=== PATIENT | female | born 1985 | race Caucasian/White ===

== ENCOUNTER → 2018-04-01 | Outpatient (CLI) | payer OTHER, MEDICAID | LOC: M OUTALCOH 12:07 | DX: Z03.89 Encounter for observation for other suspected diseases and conditions ruled out (principal) ==

== ENCOUNTER 2018-08-28 14:02 | Inpatient (IN) | payer OTHER ==
[~2018-08-28] VITALS: Ht 162.6 cm; Wt 72.7 kg
[2018-08-28] MEDS: HEPARIN SOD (PORCINE) 5000 UNITS/ML VIAL SC SCH ×2 (09:00→21:00)
[2018-08-28] MEDS ORDERED: ADVI100T PO (14:08)
[2018-08-28] MEDS ORDERED: ONDA4TAB6 PO (14:08)
[2018-08-28] MEDS ORDERED: ADDE20TA PO (14:08)
[2018-08-28] MEDS ORDERED: ONDANSETRON 4MG/2ML VIAL (J2405) IV ONE (14:30)
[2018-08-28] MEDS ORDERED: MORPHINE 2 MG/ML 1ML SYRINGE (J2270) IV ONE ×2 (14:30→15:45)
[2018-08-28] MEDS ORDERED: NS 1,000 ML IV ONE (14:30)
[2018-08-28 14:56] LABS: BASO # 0.1 10^3/uL (0.0-0.2); BASO % 0.5 % (0.0-1.0); EOS # 0.1 10^3/uL (0.0-0.50); EOS % 1.4 % (0.0-3.0); HEMATOCRIT 39.1 % (36.0-47.0); HEMOGLOBIN 13.3 g/dl (12.0-15.5); LYMPH # 2.7 10^3/uL (1.5-4.5); LYMPH % 27.5 % (24.0-44.0); MEAN CORPUSCULAR HEMOGLOBIN 29.6 pg (27.0-33.0); MEAN CORPUSCULAR VOLUME 87.1 fl (80.0-96.0); MONO # 0.8 10^3/uL (0.0-0.8); MONO % 8.7 % (0.0-5.0); NEUTROPHILS % 61.7 % (36.0-66.0); PLATELET COUNT, AUTOMATED 355 10^3/uL (150-450); RED BLOOD COUNT 4.49 10^6/uL (4.00-5.40); WHITE BLOOD COUNT 9.7 10^3/uL (4.0-10.0)
[2018-08-28] MEDS: GASTROGRAFIN SOLUTION 30ML PO SCH ×2 (15:30→16:02)
[2018-08-28 15:31] LABS: ALBUMIN 4.2 GM/DL (3.2-5.2); ALT/SGPT 23 U/L (12-78); BILIRUBIN,DIRECT 0.1 MG/DL (0.0-0.2); BILIRUBIN,TOTAL 0.5 MG/DL (0.2-1.0); BLOOD UREA NITROGEN 11 MG/DL (7-18); CARBON DIOXIDE LEVEL 26 MEQ/L (21-32); CHLORIDE LEVEL 107 MEQ/L (98-107); CREATININE FOR GFR 0.99 MG/DL (0.55-1.30); GLOMERULAR FILTRATION RATE > 60.0 (>60); GLUCOSE, FASTING 100 MG/DL (70-100); HCG, SERUM QUALITATIVE NEGATIVE (NEGATIVE); LIPASE 58 U/L (73-393); POTASSIUM SERUM 3.6 MEQ/L (3.5-5.1); SODIUM LEVEL 140 MEQ/L (136-145); TOTAL PROTEIN 7.8 GM/DL (6.4-8.2)
[2018-08-28] MEDS ORDERED: ISOVUE-370 76% 100ML VIAL (Q9967) As Ordered ONE (16:51)
[2018-08-28] MEDS ORDERED: PROMETHAZINE INJ 25 MG/ML VIAL (J2550) IV ONE (17:15)
[2018-08-28] MEDS ORDERED: HALOPERIDOL 5 MG/ML VIAL (J1630) IV ONE (18:00)
--- NOTE | 2018-08-28 18:07 | REPVR ---
EXAM: CT Abdomen and Pelvis With Contrast EXAM DATE/TIME: 08/28/2018 4:56 PM CLINICAL HISTORY: 33 years old, female; Abdominal pain; Generalized; Additional info: Low abdominal pain/bloody stools, eval for uc, divertic TECHNIQUE: Imaging protocol: Axial computed tomography images of the abdomen and pelvis with intravenous contrast. Coronal and sagittal reformatted images were created and reviewed. Radiation optimization: All CT scans at this facility use at least one of these dose optimization techniques: automated exposure control; mA and/or kV adjustment per patient size (includes targeted exams where dose is matched to clinical indication); or iterative reconstruction. Contrast material: ISOVUE 370; Contrast volume: 100 ml; Contrast route: IV CONTRAST; COMPARISON: CT ABD PELVIS W/O CONTRAST 04/03/2013 6:11 AM FINDINGS: ABDOMEN: Liver: No hepatic mass. There is hypodensity identified within the medial segment of the left lobe of the liver adjacent to the falciform ligament. This is a common location for fatty infiltration. Gallbladder and bile ducts: No calcified stones. No ductal dilation. Pancreas: Normal. No ductal dilation. Spleen: Normal. No splenomegaly. Adrenals: No mass. Kidneys and ureters: Unremarkable as visualized. No hydronephrosis. Stomach and bowel: A target sign is visualized involving a jejunal loop, consistent with intussusception. A second area of intussusception is identified at the gastroduodenal junction. Colonic wall thickening is identified, most significant involving the descending colon with minimal pericolonic stranding. This is consistent with colitis. Incomplete distention of colon can contribute to this appearance. Appendix: No evidence of appendicitis. PELVIS: Bladder: Unremarkable as visualized. Reproductive: Within the left ovary, there is a peripheral enhancing probable cyst. This measures 1.6 x 1.3 cm. ABDOMEN and PELVIS: Intraperitoneal space: No free air. Bones/joints: No acute fracture. Soft tissues: Unremarkable. Vasculature: No abdominal aortic aneurysm. Lymph nodes: No enlarged lymph nodes. IMPRESSION: 1. A target sign is visualized involving a jejunal loop, consistent with intussusception. A second area of intussusception is identified at the gastroduodenal junction. 2. Colonic wall thickening is identified, most significant involving the descending colon with minimal pericolonic stranding. This is consistent with colitis. 3. Within the left ovary, there is a peripheral enhancing probable cyst. This measures 1.6 x 1.3 cm. 4. Additional findings described above. COMMENT: Consistent with the [employer]'s Incidental Findings Committee Report (J Am Marcus [employer]iol 2010): Unless the patient's specific circumstances suggest otherwise, any liver lesion 0.5 cm or less, any cystic kidney lesion less than 1.0 cm, and/or any adrenal lesion 1.0 cm or less not otherwise characterized in this report as possessing suspicious or indeterminate imaging features is/are highly likely to be benign and do not require follow-up imaging or biopsy. Electronically signed by: Ole Edmondson On 08/28/2018 18:06:55 PM
[2018-08-28] MEDS ORDERED: HYDR-3363 PO (18:33)
[2018-08-28] MEDS: KCL 20MEQ IN D5/0.45NS 1000ML 1,000 ML IV SCH (20:09)
[2018-08-28] MEDS ORDERED: MOM 30ML SUSPENSION UDC PO PRN (21:15)
[2018-08-28] MEDS ORDERED: ACETAMINOPHEN TAB 650MG DOSE (2X325MG) PO PRN (21:15)
[2018-08-28] MEDS ORDERED: MAALOX 30 ML SUSP *UDC PO PRN (21:15)
[2018-08-28] MEDS ORDERED: D5W/LR 1,000 ML IV SCH (21:30)
--- NOTE | 2018-08-28 22:40 | HPEPDOC ---
General Date of Admission August 28, 2018 at 21:13 Chief Complaint The patient is a 33-year-old female admitted with a reason for visit of Colitis. Source: Patient, RN/MD History of Present Illness Ms. Osorio is a 33 years old woman who came to ER with c/o lower abdominal pain, back pain, nausea and bloody diarrhea that started last night. She denies fever, chills or sick contacts. In the ER, pt was afebrile and hemodynamically stable. CT abd: Colitis and Intussusception. Seen by Dr. Cobos who doesn't think it is an Intussusception, and recommends observation and small bowel follow through in the morning. I spoke with his; he lil follow up tomorrow morning. When I saw the pt in the ER, pain was better after receiving pain med. Home Medications Scheduled Dextroamphetamine/Amphetamine (Adderall 20 mg Tablet) 20 Mg Tablet, 20 MG PO DAILY, (Reported) Scheduled PRN Hydroxyzine HCl (Hydroxyzine HCl) 25 Mg Tablet, 25 MG PO QID PRN for ANXIETY, (Reported) Ibuprofen (Advil) 100 Mg Tablet, 600 MG PO QID PRN for PAIN, (Reported) Ondansetron (Ondansetron Odt) 4 Mg Tab.rapdis, 4 MG PO Q4H PRN for NAUSEA OR VOMITING, (Reported) Allergies Coded Allergies: metoclopramide (Verified Allergy, Intermediate, itchy, irritable, 08/28/18) Past Medical History Medical History ADHD, Kidney stone Surgical History Kidney stone removal, , Tubal ligation Family History Significant Family History: No pertinent family hx Social History * Smoker: former Smoker Alcohol: Denies Drugs: denies A-FIB/CHADSVASC A-FIB History Current/History of A-Fib/PAF?: No Review of Systems Constitutional: Denies: Chills, Fever, Malaise Eyes: Denies: Pain ENT: Denies: Head Aches Skin: Denies: Rash, Lesions Pulmonary: Denies: Dyspnea, Cough Cardiovascular: Denies: Chest Pain, Palpitations Gastrointestinal: Reports: Nausea, Abdominal Pain, Diarrhea, Hematochezia; Denies: Vomiting Genitourinary: Denies: Dysuria, Frequency Musculoskeletal: Reports: Back Pain; Denies: Neck Pain Neurological: Denies: Weakness, Numbness Psych: Reports: Mood Normal, Anxiety Physical Examination General Exam: Positive: Alert, Cooperative, No Acute Distress Eye Exam: Positive: PERRLA ENT Exam: Positive: Atraumatic Neck Exam: Positive: Supple; Negative: JVD Chest Exam: Positive: Clear to auscultation, Normal air movement Heart Exam: Positive: Rate Normal, Regular Rhythm Abdomen Exam: Positive: Normal bowel sounds, Soft, Tenderness (diffuce, mild tenderness without guarding on lower abdomen) Extremity Exam: Negative: Edema Skin Exam: Positive: Nl turgor and temperature; Negative: Rash, Breakdown Neuro Exam: Positive: Normal Gait, Normal Speech, Strength at 5/5 X4 ext Psych Exam: Positive: Mental status NL, Mood NL Vital Signs Vital Signs Date Time Temp Pulse Resp B/P (MAP) Pulse Ox O2 Delivery O2 Flow Rate FiO2 08/28/18 20:00 96.6 82 16 114/57 (76) 97 Room Air Laboratory Data Labs 24H Laboratory Tests 2 08/28/18 14:29: Immature Granulocyte % (Auto) 0.2, White Blood Count 9.7, Red Blood Count 4.49, Hemoglobin 13.3, Hematocrit 39.1, Mean Corpuscular Volume 87.1, Mean Corpuscular Hemoglobin 29.6, Mean Corpuscular Hemoglobin Concent 34.0, Red Cell Distribution Width 13.4, Platelet Count 355, Neutrophils (%) (Auto) 61.7, Lymphocytes (%) (Auto) 27.5, Monocytes (%) (Auto) 8.7H, Eosinophils (%) (Auto) 1.4, Basophils (%) (Auto) 0.5, Neutrophils # (Auto) 6.0, Lymphocytes # (Auto) 2.7, Monocytes # (Auto) 0.8, Eosinophils # (Auto) 0.1, Basophils # (Auto) 0.1, Nucleated Red Blood Cells % (auto) 0.0, Urine Color YELLOW, Urine Appearance HAZY, Urine pH 5.0, Urine Specific [place] 1.017, Urine Protein NEGATIVE, Urine Glucose (UA) NEGATIVE, Urine Ketones NEGATIVE, Urine Blood 1+H, Urine Nitrite NEGATIVE, Urine Bilirubin NEGATIVE, Urine Urobilinogen 0.2, Urine Leukocyte Esterase NEGATIVE, Urine WBC (Auto) 1, Urine RBC (Auto) 1, Urine Hyaline Casts (Auto) 0, Urine Bacteria (Auto) NEGATIVE, Urine Squamous Epithelial Cells 7, Urine Mucus (Auto) SMALL, Urine Sperm (Auto) , Anion Gap 7L, Glomerular Filtration Rate > 60.0, Lactic Acid Level 0.9, Calcium Level 9.0, Aspartate Amino Transf (AST/SGOT) 24, Alanine Aminotransferase (ALT/SGPT) 23, Alkaline Phosphatase 86, Total Bilirubin 0.5, Direct Bilirubin 0.1, Total Protein 7.8, Albumin 4.2, Albumin/Globulin Ratio 1.17, Lipase 58L, Human Chorionic Gonadotropin, Qual NEGATIVE CBC/BMP Laboratory Tests 08/28/18 14:29 Red Blood Count 4.49, Mean Corpuscular Volume 87.1, Mean Corpuscular Hemoglobin 29.6, Mean Corpuscular Hemoglobin Concent 34.0, Red Cell Distribution Width 13.4, Neutrophils (%) (Auto) 61.7, Lymphocytes (%) (Auto) 27.5, Monocytes (%) (Auto) 8.7 H, Eosinophils (%) (Auto) 1.4, Basophils (%) (Auto) 0.5, Neutrophils # (Auto) 6.0, Lymphocytes # (Auto) 2.7, Monocytes # (Auto) 0.8, Eosinophils # (Auto) 0.1, Basophils # (Auto) 0.1 Assessment/Plan Colitis - Admit to inpatient - NPO, IV Fluid, Pain management, IV Cipro and Flagyl - GI Panel - Surgery consult for questionable Intussusception report on CT - Monitor WBC, HB and electrolytes - Hold heparin sc if pt continues to have significant amount of bloody diarrhea Plan / VTE VTE Prophylaxis Ordered?: Yes Plan Anticipated Discharge: Home IRA RICCI MD August 28, 2018 22:40
[2018-08-28 23:55] VITALS: BP 117/64
[2018-08-29] MEDS: PROMETHAZINE INJ 25 MG/ML VIAL (J2550) IV PRN ×5 (00:33→20:54)
[2018-08-29] MEDS: MORPHINE 4 MG/ML 1ML VIAL/SYRINGE (J2270) IV PRN ×5 (00:34→20:31)
[2018-08-29] MEDS: CIPROFLOXACIN 400 MG in APPROPRIATE DILUENT 1 EA IV SCH ×3 (00:35→23:48)
[2018-08-29] MEDS: metroNIDAZOLE 500 MG in APPROPRIATE DILUENT 1 EA IV SCH ×3 (02:33→15:51)
[2018-08-29 06:00] VITALS: BP 111/56
[2018-08-29] MEDS: KCL 20MEQ IN D5/0.45NS 1000ML 1,000 ML IV SCH ×3 (06:25→20:30)
[2018-08-29 08:07] LABS: HEMATOCRIT 36.4 % (36.0-47.0); HEMOGLOBIN 11.9 g/dl (12.0-15.5); MEAN CORPUSCULAR HEMOGLOBIN 29.3 pg (27.0-33.0); MEAN CORPUSCULAR HGB CONC 32.7 g/dl (32.0-36.5); MEAN CORPUSCULAR VOLUME 89.7 fl (80.0-96.0); PLATELET COUNT, AUTOMATED 259 10^3/uL (150-450); RED BLOOD COUNT 4.06 10^6/uL (4.00-5.40)
--- NOTE | 2018-08-29 08:53 | CR.PDOC ---
General Surgery Consultation Date of Consultation 08/29/18 History and Physical CONSULT REPORT FOR: hospitalist service REASON FOR CONSULTATION: abnormal CT scan findings, abdominal pain, bloody stool HISTORY OF PRESENT ILLNESS: Patient presented to the emergency room yesterday afternoon with complaints of about a 2 day history of crampy lower back pain, lower abdominal pain. Reports this started about Wednesday afternoon. She denies any sick contacts or any unusual food she ate that day. She started feeling some low back pain initially ascribed is to possibility of a UTI. On Wednesday she was feeling much worse with increasing severity of the crampiness, lower abdominal pain mainly centered around the left side, nausea. She denies any associated fevers. She denies bobo diarrhea. She then passed some bloody-appearing stools overnight. With this findings she went to the emergency room. She was evaluated and a CT scan of the abdomen and pelvis was done showing evidence for colitis. His also additional findings of small bowel intussusception approximately 2 areas the jejunum and gastroduodenal area. I was asked to evaluate the relevance of the findings and whether this needs to be addressed likewise on the findings of colitis on CT. PAST MEDICAL HISTORY: 1. History of kidney stones 2. ADHD PAST SURGICAL HISTORY: INCLUDES: 1. section 2. Tubal ligation 3. Kidney stone removal. ALLERGIES: Please see below. FAMILY HISTORY: Denies family history of inflammatory bowel disease, colorectal or GI malignancy. HOME MEDICATIONS: Please see below. REVIEW OF SYSTEMS: GENERAL: Symptoms are at least 2 days duration but otherwise was in her usual state of health. She denies any unexplained weight loss HEENT: Denies vision or hearing problems. NECK: Denies any neck pain CARDIOVASCULAR: Denies chest pain and palpitations. MUSCULOSKELETAL: Denies arthralgias, back pain and thrombophlebitis. SKIN: Denies rash. NEUROLOGIC: Denies headache, stroke and transient ischemic attack. PSYCHIATRIC: Denies anxiety and depression. ENDOCRINE: Denies thyroid disease. HEMATOLOGY/ONCOLOGY: Denies bleeding or clotting disorder. HEART: Denies any chest pains, palpitations, paroxysmal dyspnea, orthopnea. PULMONARY: Denies chronic cough, dyspnea and wheezing. GASTROINTESTINAL: Denies rectal bleeding, family history of colon cancer, constipation, diarrhea, dysphagia, heartburn and jaundice. GENITOURINARY: Denies dysuria, frequency, hematuria and nocturia. INFECTIOUS: Denies any recent upper respiratory tract infection, UTI, need for use of antibiotics. NUTRITION: Reports fair appetite. PHYSICAL EXAMINATION: VITALS SIGNS: Please see below. GENERAL APPEARANCE:Patient seen, laying in bed, awake, alert, and oriented. Comfortable, in no acute distress. SKIN: Warm and moist. HEENT: Normocephalic, atraumatic. [place] palpebral conjunctiva, anicteric sclerae. Lips and mucosa appear moist. NECK: Supple, no thyromegaly. No obvious jugular venous distention. LUNGS: Clear to auscultation bilaterally. No wheezing appreciated. HEART: No chest wall abnormalities. Regular rate and rhythm with no murmurs appreciated. ABDOMEN: Abdomen is , relatively flat, nondistended soft, patient has tenderness on palpation over the left lower quadrant area didn't towards the suprapubic area with no guarding. She is mildly tender with slight referred discomfort over the right lower quadrant area. She has some mild extension of the tenderness over the left upper quadrant area EXTREMITIES: Extremities have no deformities. No edema identified ANCILLARIES: . LABORATORY DATA: Please see below. IMAGING STUDIES: CT scan abdomen and pelvis 1. A target sign is visualized involving a jejunal loop, consistent with intussusception. A second area of intussusception is identified at the gastroduodenal junction. 2. Colonic wall thickening is identified, most significant involving the descending colon with minimal pericolonic stranding. This is consistent with colitis. 3. Within the left ovary, there is a peripheral enhancing probable cyst. This measures 1.6 x 1.3 cm. 4. Additional findings described above. IMPRESSION AND PLAN: Colitis small bowel intussusception by CT criteria. No signs of obstruction, bowel ischemia Her history is most consistent with infectious colitis, She is not showing any symptoms related to the findings of small bowel intussusception. I reviewed the imaging studies with her. She hadn't oral contrast and the contrast passed the areas of the intussusception showing no signs of obstruction. There are no associated signs of inflammation at the into the area of intussusception. Most likely this is a transient CT finding. will follow with a small bowel follow through to look for any possible cause of a lead point that may precipitate recurrence aside from ascertaining that the intusussception has resolved as I expect it to. Vital Signs Vital Signs Date Time Temp Pulse Resp B/P (MAP) Pulse Ox O2 Delivery O2 Flow Rate FiO2 08/29/18 06:00 97.3 80 18 111/56 (74) 97 08/28/18 22:37 Room Air I&Os I&O- Last 24 Hours up to 6 AM 08/29/18 06:00 Intake Total 1120 ml Output Total 0 ml Balance 1120 ml Laboratory Data Labs 24H Laboratory Tests 2 08/28/18 14:29: Immature Granulocyte % (Auto) 0.2, White Blood Count 9.7, Red Blood Count 4.49, Hemoglobin 13.3, Hematocrit 39.1, Mean Corpuscular Volume 87.1, Mean Corpuscular Hemoglobin 29.6, Mean Corpuscular Hemoglobin Concent 34.0, Red Cell Distribution Width 13.4, Platelet Count 355, Neutrophils (%) (Auto) 61.7, Lymphocytes (%) (Auto) 27.5, Monocytes (%) (Auto) 8.7H, Eosinophils (%) (Auto) 1.4, Basophils (%) (Auto) 0.5, Neutrophils # (Auto) 6.0, Lymphocytes # (Auto) 2.7, Monocytes # (Auto) 0.8, Eosinophils # (Auto) 0.1, Basophils # (Auto) 0.1, Nucleated Red Blood Cells % (auto) 0.0, Urine Color YELLOW, Urine Appearance HAZY, Urine pH 5.0, Urine Specific [place] 1.017, Urine Protein NEGATIVE, Urine Glucose (UA) NEGATIVE, Urine Ketones NEGATIVE, Urine Blood 1+H, Urine Nitrite NEGATIVE, Urine Bilirubin NEGATIVE, Urine Urobilinogen 0.2, Urine Leukocyte Esterase NEGATIVE, Urine WBC (Auto) 1, Urine RBC (Auto) 1, Urine Hyaline Casts (Auto) 0, Urine Bacteria (Auto) NEGATIVE, Urine Squamous Epithelial Cells 7, Urine Mucus (Auto) SMALL, Urine Sperm (Auto) , Anion Gap 7L, Glomerular Filtration Rate > 60.0, Lactic Acid Level 0.9, Calcium Level 9.0, Aspartate Amino Transf (AST/SGOT) 24, Alanine Aminotransferase (ALT/SGPT) 23, Alkaline Phosphatase 86, Total Bilirubin 0.5, Direct Bilirubin 0.1, Total Protein 7.8, Albumin 4.2, Albumin/Globulin Ratio 1.17, Lipase 58L, Human Chorionic Gonadotropin, Qual NEGATIVE 08/29/18 07:49: Nucleated Red Blood Cells % (auto) 0.0, Lactic Acid Level 1.0 CBC/BMP Laboratory Tests 08/28/18 14:29 Red Blood Count 4.49, Mean Corpuscular Volume 87.1, Mean Corpuscular Hemoglobin 29.6, Mean Corpuscular Hemoglobin Concent 34.0, Red Cell Distribution Width 13.4, Neutrophils (%) (Auto) 61.7, Lymphocytes (%) (Auto) 27.5, Monocytes (%) (Auto) 8.7 H, Eosinophils (%) (Auto) 1.4, Basophils (%) (Auto) 0.5, Neutrophils # (Auto) 6.0, Lymphocytes # (Auto) 2.7, Monocytes # (Auto) 0.8, Eosinophils # (Auto) 0.1, Basophils # (Auto) 0.1 08/29/18 07:49 Red Blood Count 4.06, Mean Corpuscular Volume 89.7, Mean Corpuscular Hemoglobin 29.3, Mean Corpuscular Hemoglobin Concent 32.7, Red Cell Distribution Width 13.6 Home Medications Scheduled Dextroamphetamine/Amphetamine (Adderall 20 mg Tablet) 20 Mg Tablet, 20 MG PO DAILY, (Reported) Scheduled PRN Hydroxyzine HCl (Hydroxyzine HCl) 25 Mg Tablet, 25 MG PO QID PRN for ANXIETY, (Reported) Ibuprofen (Advil) 100 Mg Tablet, 600 MG PO QID PRN for PAIN, (Reported) Ondansetron (Ondansetron Odt) 4 Mg Tab.rapdis, 4 MG PO Q4H PRN for NAUSEA OR VOMITING, (Reported) Allergies Coded Allergies: metoclopramide (Verified Allergy, Intermediate, itchy, irritable, 08/28/18) ADELSO TANNER MD August 29, 2018 08:53
[2018-08-29 09:07] LABS: ALBUMIN 3.2 GM/DL (3.2-5.2); ALT/SGPT 18 U/L (12-78); BILIRUBIN,TOTAL 0.7 MG/DL (0.2-1.0); BLOOD UREA NITROGEN 5 MG/DL (7-18); CALCIUM LEVEL 7.7 MG/DL (8.5-10.1); CARBON DIOXIDE LEVEL 28 MEQ/L (21-32); CHLORIDE LEVEL 110 MEQ/L (98-107); CREATININE FOR GFR 0.85 MG/DL (0.55-1.30); GLOMERULAR FILTRATION RATE > 60.0 (>60); GLUCOSE, FASTING 104 MG/DL (70-100); POTASSIUM SERUM 3.7 MEQ/L (3.5-5.1); SODIUM LEVEL 140 MEQ/L (136-145); TOTAL PROTEIN 6.1 GM/DL (6.4-8.2)
[2018-08-29] MEDS: HEPARIN SOD (PORCINE) 5000 UNITS/ML VIAL SC SCH ×2 (09:12→20:30)
--- NOTE | 2018-08-29 12:05 | IPNPDOC ---
Date Seen The patient was seen on 08/29/18. Progress Note SUBJECTIVE: Patient improved with pain medication but she still complains of some abdominal pain. No diarrhea after IV fluid was initiated. Patient willing to provide a stool sample when available. Continue to medically treat and appreciate surgical medications. OBJECTIVE PHYSICAL EXAMINATION: VITAL SIGNS: Please see below GENERAL APPEARANCE: Resting comfortably HEENT: Normocephalic, PERRLA, Mucous moist, CARDIOVASCULAR: S1,S2, pulse present, regularly, regular, no obvious murmur LUNGS: Equal air entry b/l, no wheezes or crackle ABDOMEN: Soft, BS present, generalized abdominal tenderness, no guarding, no rigidity or peritoneal sign EXTREMITIES: B/L no edema, capillary refill present SKIN: Warm, No fever NEUROLOGICAL: Cranial nerves grossly intact PSYCHIATRIC: Normal mood and affect for current situation LABORATORY DATA, IMAGING STUDIES, MICROBIOLOGY: Please see below. Ms. Osorio is a 33 years old woman who came to ER with c/o lower abdominal pain, back pain, nausea and bloody diarrhea that started last night. She denies fever, chills or sick contacts. In the ER, pt was afebrile and hemodynamically stable. CT abd: Colitis and Intussusception. Seen by Dr. Cobos who doesn't think it is an Intussusception, and recommends observation and small bowel follow through in the morning. I spoke with his; he lil follow up tomorrow morning. When I saw the pt in the ER, pain was better after receiving pain med. Assessment and plan: 33 yr old Female with PMH of ADHD and Kidney stone with abdominal pain. On CT abdomen found to have intussusception. Patient evaluated by Dr. Cobos, he doesn't think it is an Intussusception. He suspect colitis. Abdominal pain, Colitis vs intussusception. -HCG negative, LFT nml, LA nml, lipase nml -CT abdomen:. A target sign is visualized involving a jejunal loop, consistent with intussusception. A second area of intussusception is identified at the gastroduodenal junction. Colonic wall thickening is identified, most significant involving the descending colon with minimal pericolonic stranding. This is consistent with colitis. Within the left ovary, there is a peripheral enhancing probable cyst. This measures 1.6 x 1.3 cm. Additional findings please see full report -Patient seen and evalauted by Dr. Cobos who doesn't think it is an Intussusception. Surgery to continue to follow. -pain management -empiric cipro and flagyl -GI panel when sample available -Pelvic US in the morning for ovarian cyst reported in CT: pending DVT hep sc VS, I&O, 24H, Fishbone Vital Signs/I&O Vital Signs Date Time Temp Pulse Resp B/P (MAP) Pulse Ox O2 Delivery O2 Flow Rate FiO2 08/29/18 09:23 18 08/29/18 06:00 97.3 80 111/56 (74) 97 08/28/18 22:37 Room Air I&O- Last 24 Hours up to 6 AM 08/29/18 06:00 Intake Total 1120 ml Output Total 0 ml Balance 1120 ml Laboratory Data 24H LABS Laboratory Tests 2 08/28/18 14:29: Immature Granulocyte % (Auto) 0.2, White Blood Count 9.7, Red Blood Count 4.49, Hemoglobin 13.3, Hematocrit 39.1, Mean Corpuscular Volume 87.1, Mean Corpuscular Hemoglobin 29.6, Mean Corpuscular Hemoglobin Concent 34.0, Red Cell Distribution Width 13.4, Platelet Count 355, Neutrophils (%) (Auto) 61.7, Lymphocytes (%) (Auto) 27.5, Monocytes (%) (Auto) 8.7H, Eosinophils (%) (Auto) 1.4, Basophils (%) (Auto) 0.5, Neutrophils # (Auto) 6.0, Lymphocytes # (Auto) 2.7, Monocytes # (Auto) 0.8, Eosinophils # (Auto) 0.1, Basophils # (Auto) 0.1, Nucleated Red Blood Cells % (auto) 0.0, Urine Color YELLOW, Urine Appearance HAZY, Urine pH 5.0, Urine Specific [place] 1.017, Urine Protein NEGATIVE, Urine Glucose (UA) NEGATIVE, Urine Ketones NEGATIVE, Urine Blood 1+H, Urine Nitrite NEGATIVE, Urine Bilirubin NEGATIVE, Urine Urobilinogen 0.2, Urine Leukocyte Esterase NEGATIVE, Urine WBC (Auto) 1, Urine RBC (Auto) 1, Urine Hyaline Casts (Auto) 0, Urine Bacteria (Auto) NEGATIVE, Urine Squamous Epithelial Cells 7, Urine Mucus (Auto) SMALL, Urine Sperm (Auto) , Anion Gap 7L, Glomerular Filtration Rate > 60.0, Lactic Acid Level 0.9, Calcium Level 9.0, Aspartate Amino Transf (AST/SGOT) 24, Alanine Aminotransferase (ALT/SGPT) 23, Alkaline Phosphatase 86, Total Bilirubin 0.5, Direct Bilirubin 0.1, Total Protein 7.8, Albumin 4.2, Albumin/Globulin Rat io 1.17, Lipase 58L, Human Chorionic Gonadotropin, Qual NEGATIVE 08/29/18 07:49: Nucleated Red Blood Cells % (auto) 0.0, Anion Gap 2L, Glomerular Filtration Rate > 60.0, Lactic Acid Level 1.0, Calcium Level 7.7L, Aspartate Amino Transf (AST/SGOT) 17, Alanine Aminotransferase (ALT/SGPT) 18, Alkaline Phosphatase 66, Total Bilirubin 0.7, Total Protein 6.1#L, Albumin 3.2#, Albumin/Globulin Ratio 1.10, Blood Urea Nitrogen 5#L, Creatinine 0.85, Sodium Level 140, Potassium Level 3.7, Chloride Level 110H, Carbon Dioxide Level 28 CBC/BMP Laboratory Tests 08/28/18 14:29 Red Blood Count 4.49, Mean Corpuscular Volume 87.1, Mean Corpuscular Hemoglobin 29.6, Mean Corpuscular Hemoglobin Concent 34.0, Red Cell Distribution Width 13.4, Neutrophils (%) (Auto) 61.7, Lymphocytes (%) (Auto) 27.5, Monocytes (%) (Auto) 8.7 H, Eosinophils (%) (Auto) 1.4, Basophils (%) (Auto) 0.5, Neutrophils # (Auto) 6.0, Lymphocytes # (Auto) 2.7, Monocytes # (Auto) 0.8, Eosinophils # (Auto) 0.1, Basophils # (Auto) 0.1 08/29/18 07:49 Red Blood Count 4.06, Mean Corpuscular Volume 89.7, Mean Corpuscular Hemoglobin 29.3, Mean Corpuscular Hemoglobin Concent 32.7, Red Cell Distribution Width 13.6, Calcium Level 7.7 L, Aspartate Amino Transf (AST/SGOT) 17, Alanine Aminotransferase (ALT/SGPT) 18, Alkaline Phosphatase 66, Total Bilirubin 0.7, Total Protein 6.1 #L, Albumin 3.2 # ANNA MARIE SAMUELS MD August 29, 2018 12:05
--- NOTE | 2018-08-29 12:53 | REP ---
Pelvic sonography: History: Abdomen pain. Ovarian cyst. Comparison is made with CT imaging from August 28, 2018. Findings: Transabdominal scanning demonstrates normal uterine size. Its dimensions are five point 2 x 4.0 x 8.9 cm. Endometrial echo 0.5 cm thick and centrally placed. No focal uterine mass is seen. No free fluid is noted. Normal ovaries are seen. Right ovarian dimensions are 2.5 x 1.4 x 2.0 cm. Left ovary measures 2.7 x 1.4 x 2.5 cm. Doppler flow is normal to both ovaries. Resistive indices are measured at 0.59 on the right and 0.48 on the left. Impression: Normal pelvic sonography. Electronically Signed by Derrick Kulkarni MD 08/29/2018 12:45 P
[2018-08-29 14:00] VITALS: BP 115/70
[2018-08-29] MEDS ORDERED: KETOROLAC 30 MG/ML VIAL (J1885) IV ONE (16:00)
[2018-08-29 22:00] VITALS: BP 101/61
[2018-08-29] MEDS: KETOROLAC 30 MG/ML VIAL (J1885) IV PRN (23:50)
[2018-08-30] MEDS: hydrOXYzine 25 MG TAB PO PRN ×2 (00:56→21:15)
[2018-08-30] MEDS: metroNIDAZOLE 500 MG in APPROPRIATE DILUENT 1 EA IV SCH ×3 (00:56→16:36)
[2018-08-30] MEDS: KCL 20MEQ IN D5/0.45NS 1000ML 1,000 ML IV SCH ×2 (00:57→10:38)
[2018-08-30] MEDS: PROMETHAZINE INJ 25 MG/ML VIAL (J2550) IV PRN ×4 (01:21→20:51)
[2018-08-30] MEDS: PERCOCET 5MG/325MG TAB PO PRN ×4 (03:37→19:58)
[2018-08-30 06:00] VITALS: BP 118/70
[2018-08-30] MEDS ORDERED: MOM 30ML SUSPENSION UDC PO ONE (06:00)
[2018-08-30 06:14] LABS: HEMATOCRIT 37.1 % (36.0-47.0); MEAN CORPUSCULAR HEMOGLOBIN 29.4 pg (27.0-33.0); MEAN CORPUSCULAR HGB CONC 32.3 g/dl (32.0-36.5); MEAN CORPUSCULAR VOLUME 90.9 fl (80.0-96.0); PLATELET COUNT, AUTOMATED 242 10^3/uL (150-450); RED BLOOD COUNT 4.08 10^6/uL (4.00-5.40); WHITE BLOOD COUNT 5.5 10^3/uL (4.0-10.0)
[2018-08-30 06:31] LABS: BLOOD UREA NITROGEN 3 MG/DL (7-18); CALCIUM LEVEL 7.7 MG/DL (8.5-10.1); CARBON DIOXIDE LEVEL 24 MEQ/L (21-32); CHLORIDE LEVEL 112 MEQ/L (98-107); CREATININE FOR GFR 0.73 MG/DL (0.55-1.30); GLOMERULAR FILTRATION RATE > 60.0 (>60); GLUCOSE, FASTING 94 MG/DL (70-100); POTASSIUM SERUM 3.9 MEQ/L (3.5-5.1); SODIUM LEVEL 141 MEQ/L (136-145)
[2018-08-30] MEDS: KETOROLAC 30 MG/ML VIAL (J1885) IV PRN ×2 (06:34→17:30)
[2018-08-30] MEDS: HEPARIN SOD (PORCINE) 5000 UNITS/ML VIAL SC SCH ×2 (08:18→20:51)
[2018-08-30] MEDS: CIPROFLOXACIN 400 MG in APPROPRIATE DILUENT 1 EA IV SCH ×2 (10:38→22:42)
[2018-08-30] MEDS ORDERED: E-Z-PAQUE 96% w/w SUSP 176GM BTL As Ordered ONE (12:09)
[2018-08-30] MEDS ORDERED: E-Z-GAS II EFFERVESCENT PACKET (SODIUM BICARB./CITRIC ACID/SIMETHICONE) As Ordered ONE (12:09)
[2018-08-30] MEDS ORDERED: E-Z-HD 98% w/w 340GM SUSP BTL As Ordered ONE (12:10)
[2018-08-30 16:00] VITALS: BP 134/88
--- NOTE | 2018-08-30 16:04 | IPNPDOC ---
Subjective General Date/Time Seen The patient was seen on 08/30/18 at 16:02. Subject Chief Complaint/History The patient is a 33-year-old female admitted with a reason for visit of Colitis. Still having significant abdominal discomfort mostly in the left abdomen and pelvis. She's been afebrile. A small amount of loose stool last night which was nonbloody. Reports nausea. Current Medications Current Medications Current Medications Acetaminophen (Tylenol Tab) 650 mg Q4H PRN PO PAIN OR FEVER; Start 08/28/18 at 21:15 Al Hydrox/Mg Hydrox/Simethicone (Mylanta) 10 ml DAILY PRN PO DYSPEPSIA; Start 08/28/18 at 21:15 Ciprofloxacin 400 mg/IV Miscellaneous Supplies 200 ml @ 200 mls/hr Q12H IV Last administered on 08/30/18at 10:38; Start 08/28/18 at 23:00 Dextrose/Lactated Ringer's 1,000 ml @ 100 mls/hr Q10H IV ; Start 08/28/18 at 21:30; Stop 08/29/18 at 00:16; Status DC Diatrizoate Meglum/ Diatrizoate Sod (Gastrografin) 10 ml Q30M PO Last administered on 08/28/18at 16:02; Start 08/28/18 at 15:30; Stop 08/28/18 at 16:01; Status DC Heparin Sodium (Porcine) (Heparin) 5,000 units Q12H SC Last administered on 08/30/18at 08:18; Start 08/28/18 at 09:00 Home Med (Med Rec Complete!) ASDIRECTED XX ; Start 08/28/18 at 18:45; Stop 08/28/18 at 18:45; Status DC Hydroxyzine HCl (Atarax) 25 mg QID PRN PO ANXIETY Last administered on 08/30/18at 00:56; Start 08/28/18 at 21:30 Ketorolac Tromethamine (ToRADol) 30 mg Q6H PRN IV PAIN Last administered on 08/30/18at 06:34; Start 08/29/18 at 22:00; Stop 09/03/18 at 21:59 Magnesium Hydroxide (Milk Of Magnesia) 30 ml DAILY PRN PO CONSTIPATION; Start 08/28/18 at 21:15 Metronidazole 500 mg/IV Miscellaneous Supplies 100 ml @ 100 mls/hr Q8H IV Last administered on 08/30/18 08:18; Start 08/29/18 at 00:00 Morphine Sulfate (Morphine Sulfate Inj) 2 mg Q3HP PRN IV PAIN Last administered on 08/29/18 13:25; Start 08/29/18 at 00:15; Stop 08/29/18 at 15:49; Status DC Morphine Sulfate (Morphine Sulfate Inj) 4 mg Q3HP PRN IV SEVERE PAIN (PS 8-10) Last administered on 08/29/18 20:31; Start 08/29/18 at 16:00 Oxycodone/ Acetaminophen (Percocet 5mg/ 325mg Tablet) 1 tab Q4HP PRN PO MILD/MODERATE PAIN (PS 1-7) Last administered on 08/30/18 03:37; Start 08/29/18 at 16:00 Oxycodone/ Acetaminophen (Percocet 5mg/ 325mg Tablet) 2 tab Q4HP PRN PO SEVERE PAIN (PS 8-10) Last administered on 08/30/18 15:03; Start 08/29/18 at 16:00 Potassium Chloride/Dextrose/ Sod Cl 1,000 ml @ 125 mls/hr Q8H IV Last administered on 08/30/18 10:38; Start 08/28/18 at 19:45 Promethazine HCl (PHENERGAN INJection) 25 mg Q4HP PRN IV NAUSEA Last administered on 08/30/18 08:18; Start 08/29/18 at 00:15 Allergies Coded Allergies: metoclopramide (Verified Allergy, Intermediate, itchy, irritable, 08/28/18) Objective Physical Examination Examination GENERAL APPEARANCE: Relatively comfortable. SKIN: Warm and moist. HEENT: Normocephalic, atraumatic. [place] palpebral conjunctiva, anicteric sclerae. Lips and mucosa appear moist. NECK: Supple, no thyromegaly. No obvious jugular venous distention. LUNGS: Clear to auscultation bilaterally. No wheezing appreciated. HEART: No chest wall abnormalities. Regular rate and rhythm with no murmurs appreciated. ABDOMEN: Abdomen is mildly distended, soft, tympanitic to percussion. Tenderness mainly centered over the left lower quadrant and suprapubic area. No guarding. EXTREMITIES: No edema. Vital Signs Vital Signs Date Time Temp Pulse Resp B/P (MAP) Pulse Ox O2 Delivery O2 Flow Rate FiO2 08/30/18 15:03 18 08/30/18 06:00 97.3 77 118/70 (86) 98 08/28/18 22:37 Room Air I&Os I&O- Last 24 Hours up to 6 AM 08/30/18 06:00 Intake Total 1080 ml Output Total 2700 ml Balance -1620 ml Laboratory Data Labs 24H Laboratory Tests 2 08/30/18 05:43: Nucleated Red Blood Cells % (auto) 0.0, Anion Gap 5L, Glomerular Filtration Rate > 60.0, Blood Urea Nitrogen 3L, Creatinine 0.73, Sodium Level 141, Potassium Level 3.9, Chloride Level 112H, Carbon Dioxide Level 24, Calcium Level 7.7L CBC/BMP Laboratory Tests 08/30/18 05:43 Red Blood Count 4.08, Mean Corpuscular Volume 90.9, Mean Corpuscular Hemoglobin 29.4, Mean Corpuscular Hemoglobin Concent 32.3, Red Cell Distribution Width 13.6, Calcium Level 7.7 L Impression Colitis patient infectious at this point GI panel remains pending Intussusception I presume this is transient. There is no signs of obstruction, abdominal distention examination She is scheduled for an upper GI series, small bowel follow-through today Plan / VTE VTE Prophylaxis Ordered?: Yes AEDLSO TANNER MD August 30, 2018 16:04
--- NOTE | 2018-08-30 17:20 | REP ---
Upper GI Air Contrast with SBFT The procedure was performed by TEAGAN Liang, under the the direct supervision of Dr. Kulkarni. The images were reviewed with Dr. Kulkarni. The oncology patient navigator film shows no organomegaly or pathological masses. The intestinal gas pattern appears normal. Liquid barium and gas producing crystals were given in the erect position as well as liquid barium in the prone oblique position in order to perform a double contrast upper GI examination. The oral and pharyngeal stages of deglutition were unremarkable. Esophageal transport is efficient and there is no esophagitis, stricture, or mucosal ring noted. There there is no evidence of hiatal hernia. Gastroesophageal reflux is noted to the level of the eri. The stomach schulte are normally outlined. The rugal folds are smooth and regular. There is no gastritis, neoplasm, or ulcer disease noted. The duodenal schulte are normally outlined. The mucosal folds are smooth and regular. There is no duodenitis, peptic ulcer disease, or neoplasm noted. The visualized portion of the proximal small bowel appears normal in course and caliber. The barium column was followed through the small bowel to the level of the terminal ileum. Small bowel transit time was approximately 145 minutes. During fluoroscopy gentle palpation shows all loops are freely mobile and pliable. There are no fixed or angulated loops. The small bowel mucosal pattern is normal in course and caliber. There is no transition to suggest a partial small-bowel obstruction. Spot filming of the terminal ileum shows it to be unremarkable. Impression; 1. Gastroesophageal reflux to the level of the eri. 0.6 minutes of fluoroscopy time was utilized for this procedure. Reviewed by ETAGAN Frost 08/30/2018 04:36 P Electronically Signed by Derrick Kulkarni MD 08/30/2018 05:10 P
--- NOTE | 2018-08-30 19:41 | IPNPDOC ---
Date Seen The patient was seen on 08/30/18. Progress Note SUBJECTIVE: Patient appeared to be in moderate discomfort this morning. Reports soreness in the abdomen and nausea but has not vomited, also has loose stool. Denies any other specific complaints. OBJECTIVE PHYSICAL EXAMINATION: VITAL SIGNS: Please see below. General: moderate distress. Eyes: Normal sclera, EOMI, SHELIA HENT: Atraumatic, neck supple, moist mucous membranes Cardiovascular: Normal rate, normal rhythm. Pulmonary: Clear to auscultation b/l, no wheezing GI: Soft, nondistended. Mild generalized tenderness on palpation. Skin: Warm and dry Neuro: CN grossly intact. No focal deficits. Strengths equal b/l. Psych: oriented x 3 LABORATORY DATA, IMAGING STUDIES, MICROBIOLOGY: Please see below. DVT prophylaxis ordered?: Yes ASSESSMENT AND PLAN: 1. Colitis vs Intussusception - CT with evidence of intussusception and colitis. No evidence of obstruction. - Surgery following. Scheduled for upper GI series and SB follow through today. - Pain management. - c/w empiric Abx cipro and flagyl. - f/u GI panel. A-FIB/CHADSVASC A-FIB History Current/History of A-Fib/PAF?: No VS, I&O, 24H, Fishbone Vital Signs/I&O Vital Signs Date Time Temp Pulse Resp B/P (MAP) Pulse Ox O2 Delivery O2 Flow Rate FiO2 08/30/18 16:00 99.0 78 16 134/88 (103) 100 08/28/18 22:37 Room Air I&O- Last 24 Hours up to 6 AM 08/30/18 06:00 Intake Total 1080 ml Output Total 2700 ml Balance -1620 ml Laboratory Data 24H LABS Laboratory Tests 2 08/30/18 05:43: Nucleated Red Blood Cells % (auto) 0.0, Anion Gap 5L, Glomerular Filtration Rate > 60.0, Blood Urea Nitrogen 3L, Creatinine 0.73, Sodium Level 141, Potassium Level 3.9, Chloride Level 112H, Carbon Dioxide Level 24, Calcium Level 7.7L CBC/BMP Laboratory Tests 08/30/18 05:43 Red Blood Count 4.08, Mean Corpuscular Volume 90.9, Mean Corpuscular Hemoglobin 29.4, Mean Corpuscular Hemoglobin Concent 32.3, Red Cell Distribution Width 13.6, Calcium Level 7.7 L LOKI LYNN MD August 30, 2018 19:41
[2018-08-30 20:00] VITALS: BP 116/63
[2018-08-31] VITALS: BP 118/82
[2018-08-31] MEDS: KCL 20MEQ IN D5/0.45NS 1000ML 1,000 ML IV SCH ×3 (00:17→11:45)
[2018-08-31] MEDS: metroNIDAZOLE 500 MG in APPROPRIATE DILUENT 1 EA IV SCH ×3 (00:17→15:46)
[2018-08-31] MEDS: PERCOCET 5MG/325MG TAB PO PRN ×5 (00:18→23:03)
--- NOTE | 2018-08-31 02:56 | REP ---
Clinical: Intussusception. Technique: Supine view of the abdomen and pelvis. Findings: Single supine view of the abdomen and pelvis demonstrates oral contrast material outlining a normal-appearing colon. No evidence for bowel obstruction. No contrast extravasation. No free air. No organomegaly. Skeletal structures are intact. Impression: Unremarkable abdominal radiograph. Electronically Signed by Daniel Cramer MD 08/31/2018 02:47 A
[2018-08-31] MEDS: PROMETHAZINE INJ 25 MG/ML VIAL (J2550) IV PRN ×4 (03:29→20:28)
[2018-08-31] MEDS: MORPHINE 4 MG/ML 1ML VIAL/SYRINGE (J2270) IV PRN (03:38)
[2018-08-31 06:57] LABS: HEMATOCRIT 37.1 % (36.0-47.0); HEMOGLOBIN 12.2 g/dl (12.0-15.5); MEAN CORPUSCULAR HEMOGLOBIN 29.5 pg (27.0-33.0); MEAN CORPUSCULAR HGB CONC 32.9 g/dl (32.0-36.5); MEAN CORPUSCULAR VOLUME 89.8 fl (80.0-96.0); PLATELET COUNT, AUTOMATED 262 10^3/uL (150-450); RED BLOOD COUNT 4.13 10^6/uL (4.00-5.40); WHITE BLOOD COUNT 4.4 10^3/uL (4.0-10.0)
[2018-08-31 07:27] LABS: BLOOD UREA NITROGEN 2 MG/DL (7-18); CALCIUM LEVEL 7.8 MG/DL (8.5-10.1); CARBON DIOXIDE LEVEL 27 MEQ/L (21-32); CHLORIDE LEVEL 110 MEQ/L (98-107); CREATININE FOR GFR 0.88 MG/DL (0.55-1.30); GLOMERULAR FILTRATION RATE > 60.0 (>60); GLUCOSE, FASTING 118 MG/DL (70-100); POTASSIUM SERUM 3.8 MEQ/L (3.5-5.1); SODIUM LEVEL 141 MEQ/L (136-145)
[2018-08-31 08:00] VITALS: BP 122/79
[2018-08-31] MEDS: HEPARIN SOD (PORCINE) 5000 UNITS/ML VIAL SC SCH ×2 (08:00→20:27)
[2018-08-31 09:31] LABS: C REACTIVE PROTEIN QUANTITATIV 0.74 MG/DL (0.00-0.30)
[2018-08-31] MEDS: CIPROFLOXACIN 400 MG in APPROPRIATE DILUENT 1 EA IV SCH ×2 (10:07→23:01)
--- NOTE | 2018-08-31 12:59 | IPNPDOC ---
Subjective General Date/Time Seen The patient was seen on 08/31/18 at 12:52. Subject Chief Complaint/History The patient is a 33-year-old female admitted with a reason for visit of Colitis. She continues to complain of left lower quadrant abdominal pain as well as nausea but she has not had any vomiting since she's been admitted to the hospital and though she has been having loose stool she has not had any frequent stools or bloody BMs. She's been afebrile throughout her stay. She had a small bowel follow through done yesterday and this is reviewed with her. Current Medications Current Medications Current Medications Acetaminophen (Tylenol Tab) 650 mg Q4H PRN PO PAIN OR FEVER; Start 08/28/18 at 21:15 Al Hydrox/Mg Hydrox/Simethicone (Mylanta) 10 ml DAILY PRN PO DYSPEPSIA; Start 08/28/18 at 21:15 Ciprofloxacin 400 mg/IV Miscellaneous Supplies 200 ml @ 200 mls/hr Q12H IV Last administered on 08/31/18at 10:07; Start 08/28/18 at 23:00 Dextrose/Lactated Ringer's 1,000 ml @ 100 mls/hr Q10H IV ; Start 08/28/18 at 21:30; Stop 08/29/18 at 00:16; Status DC Diatrizoate Meglum/ Diatrizoate Sod (Gastrografin) 10 ml Q30M PO Last administered on 08/28/18at 16:02; Start 08/28/18 at 15:30; Stop 08/28/18 at 16:01; Status DC Heparin Sodium (Porcine) (Heparin) 5,000 units Q12H SC Last administered on 08/31/18at 08:00; Start 08/28/18 at 09:00 Home Med (Med Rec Complete!) ASDIRECTED XX ; Start 08/28/18 at 18:45; Stop 08/28/18 at 18:45; Status DC Hydroxyzine HCl (Atarax) 25 mg QID PRN PO ANXIETY Last administered on 08/30/18at 21:15; Start 08/28/18 at 21:30 Ketorolac Tromethamine (ToRADol) 30 mg Q6H PRN IV PAIN Last administered on 08/30/18at 17:30; Start 08/29/18 at 22:00; Stop 09/03/18 at 21:59 Magnesium Hydroxide (Milk Of Magnesia) 30 ml DAILY PRN PO CONSTIPATION; Start 08/28/18 at 21:15 Metronidazole 500 mg/IV Miscellaneous Supplies 100 ml @ 100 mls/hr Q8H IV Last administered on 08/31/18 08:00; Start 08/29/18 at 00:00 Morphine Sulfate (Morphine Sulfate Inj) 2 mg Q3HP PRN IV PAIN Last administered on 08/29/18 13:25; Start 08/29/18 at 00:15; Stop 08/29/18 at 15:49; Status DC Morphine Sulfate (Morphine Sulfate Inj) 4 mg Q3HP PRN IV SEVERE PAIN (PS 8-10) Last administered on 08/31/18 03:38; Start 08/29/18 at 16:00; Stop 08/31/18 at 11:13; Status DC Oxycodone/ Acetaminophen (Percocet 5mg/ 325mg Tablet) 1 tab Q4HP PRN PO MILD/MO DERATE PAIN (PS 1-7) Last administered on 08/30/18 03:37; Start 08/29/18 at 16:00 Oxycodone/ Acetaminophen (Percocet 5mg/ 325mg Tablet) 2 tab Q4HP PRN PO SEVERE PAIN (PS 8-10) Last administered on 08/31/18 12:50; Start 08/29/18 at 16:00 Potassium Chloride/Dextrose/ Sod Cl 1,000 ml @ 125 mls/hr Q8H IV Last administered on 08/31/18 08:30; Start 08/28/18 at 19:45 Promethazine HCl (PHENERGAN INJection) 25 mg Q4HP PRN IV NAUSEA Last administered on 08/31/18 09:28; Start 08/29/18 at 00:15 Allergies Coded Allergies: metoclopramide (Verified Allergy, Intermediate, itchy, irritable, 08/28/18) Objective Physical Examination Examination GENERAL APPEARANCE:[Patient seen, laying in bed, awake, alert, and oriented. Comfortable, in no acute distress]. SKIN: [Warm and moist]. HEENT: [Normocephalic, atraumatic. [place] palpebral conjunctiva, anicteric sclerae. Lips and mucosa appear moist]. NECK: [Supple, no thyromegaly. No obvious jugular venous distention]. LUNGS: [Clear to auscultation bilaterally. No wheezing appreciated]. HEART: [No chest wall abnormalities. Regular rate and rhythm with no murmurs appreciated]. ABDOMEN: Abdomen is , soft, . [No hepatosplenomegaly. No umbilical or groin herniations, nondistended. No noticeable rebound or guarding. No grimacing with palpation. No rebound tenderness. No masses appreciated]. EXTREMITIES: [Extremities have no deformities. No edema identified]. Vital Signs Vital Signs Date Time Temp Pulse Resp B/P (MAP) Pulse Ox O2 Delivery O2 Flow Rate FiO2 08/31/18 12:50 18 08/31/18 08:00 98.9 79 122/79 (93) 100 08/28/18 22:37 Room Air I&Os I&O- Last 24 Hours up to 6 AM 08/31/18 06:00 Intake Total 3740 ml Output Total 2000 ml Balance 1740 ml Laboratory Data Labs 24H Laboratory Tests 2 08/31/18 06:35: Nucleated Red Blood Cells % (auto) 0.0, Anion Gap 4L, Glomerular Filtration Rate > 60.0, Blood Urea Nitrogen 2L, Creatinine 0.88, Sodium Level 141, Potassium Level 3.8, Chloride Level 110H, Carbon Dioxide Level 27, Calcium Level 7.8L, C- Reactive Protein, Quantitative 0.74H CBC/BMP Laboratory Tests 08/31/18 06:35 Red Blood Count 4.13, Mean Corpuscular Volume 89.8, Mean Corpuscular Hemoglobin 29.5, Mean Corpuscular Hemoglobin Concent 32.9, Red Cell Distribution Width 13.5, Calcium Level 7.8 L Microbiology Microbiology 08/30/18 Gastrointestinal Tract Panel (PCR) - Final, Complete Enteroaggregative E.coli Imaging Studies Upper GI series and small bowel follow-through The barium column was followed through the small bowel to the level of the terminal ileum. Small bowel transit time was approximately 145 minutes. During fluoroscopy gentle palpation shows all loops are freely mobile and pliable. There are no fixed or angulated loops. The small bowel mucosal pattern is normal in course and caliber. There is no transition to suggest a partial small-bowel obstruction. Spot filming of the terminal ileum shows it to be unremarkable. Impression; 1. Gastroesophageal reflux to the level of the eri. 0.6 minutes of fluoroscopy time was utilized for this procedure. Impression Infectious colitis. GI panel shows growth of Escherichia coli Small bowel follow-through was negative for persistent intussusception, suspicious lead points or any intramucosal defects. She does have slow transit as it took 145 minutes to get to the terminal ileum with otherwise normal study. She demonstrates presence of gastroesophageal reflux. At this point I see no remaining surgical issues. Given the growth of Escherichia coli Daniel Harringtontt to the medical service whether she does need further antibiotics. She still complains of some crampy left lower quadrant abdominal pain which I presume is from the colitis. I advised her to back off a little on the narcotics. I'm stopping the morphine. I expect her symptoms will slowly and gradually improve and resolve by itself. I am signing off from the case at this point. Plan / VTE VTE Prophylaxis Ordered?: Yes ADELSO TANNER MD August 31, 2018 12:59
[2018-08-31 16:00] VITALS: BP 129/73
--- NOTE | 2018-08-31 16:33 | IPNPDOC ---
Date Seen The patient was seen on 08/31/18. Progress Note SUBJECTIVE: Patient appeared still be in distress this morning, although slightly less than yesterday. Abdominal soreness and nausea persistent. Loose stool persistent. Has not been able to eat much. OBJECTIVE PHYSICAL EXAMINATION: VITAL SIGNS: Please see below. General: mild distress. Eyes: Normal sclera, EOMI, SHELIA HENT: Atraumatic, neck supple, moist mucous membranes Cardiovascular: Normal rate, normal rhythm. Pulmonary: Clear to auscultation b/l, no wheezing GI: Soft, nondistended. Mild generalized tenderness on palpation. Normoactive bowel sounds. Skin: Warm and dry Neuro: CN grossly intact. No focal deficits. Strengths equal b/l. Psych: oriented x 3 LABORATORY DATA, IMAGING STUDIES, MICROBIOLOGY: Please see below. DVT prophylaxis ordered?: Yes ASSESSMENT AND PLAN: 1. Colitis vs Intussusception - CT with evidence of intussusception and colitis. No evidence of obstruction. - Surgery evaluated, no evidence of obstruction seen on upper GI series with SB follow through. - Previous findings likely transient. - Pain management. - c/w empiric Abx cipro and flagyl. - GI + for E. coli (EAEC), likely cause of her colitis and symptoms. - Continue supportive care. Consider discontinuing antibiotics soon when symptoms improve. A-FIB/CHADSVASC A-FIB History Current/History of A-Fib/PAF?: No VS, I&O, 24H, Fishbone Vital Signs/I&O Vital Signs Date Time Temp Pulse Resp B/P (MAP) Pulse Ox O2 Delivery O2 Flow Rate FiO2 08/31/18 13:20 16 08/31/18 08:00 98.9 79 122/79 (93) 100 08/28/18 22:37 Room Air I&O- Last 24 Hours up to 6 AM 08/31/18 06:00 Intake Total 3740 ml Output Total 2000 ml Balance 1740 ml Laboratory Data 24H LABS Laboratory Tests 2 08/31/18 06:35: Nucleated Red Blood Cells % (auto) 0.0, Anion Gap 4L, Glomerular Filtration Rate > 60.0, Blood Urea Nitrogen 2L, Creatinine 0.88, Sodium Level 141, Potassium L evel 3.8, Chloride Level 110H, Carbon Dioxide Level 27, Calcium Level 7.8L, C- Reactive Protein, Quantitative 0.74H CBC/BMP Laboratory Tests 08/31/18 06:35 Red Blood Count 4.13, Mean Corpuscular Volume 89.8, Mean Corpuscular Hemoglobin 29.5, Mean Corpuscular Hemoglobin Concent 32.9, Red Cell Distribution Width 13.5, Calcium Level 7.8 L Microbiology Microbiology 08/30/18 Gastrointestinal Tract Panel (PCR) - Final, Complete Enteroaggregative E.coli LOKI LYNN MD August 31, 2018 16:33
[2018-08-31 20:00] VITALS: BP 130/80
[2018-08-31] MEDS: KETOROLAC 30 MG/ML VIAL (J1885) IV PRN (21:34)
[2018-09-01] VITALS: BP 123/69
[2018-09-01] MEDS: metroNIDAZOLE 500 MG in APPROPRIATE DILUENT 1 EA IV SCH ×2 (00:23→08:03)
[2018-09-01] MEDS: PROMETHAZINE INJ 25 MG/ML VIAL (J2550) IV PRN ×5 (01:51→20:29)
[2018-09-01] MEDS: PERCOCET 5MG/325MG TAB PO PRN ×4 (05:43→21:46)
[2018-09-01 06:44] LABS: HEMATOCRIT 38.4 % (36.0-47.0); HEMOGLOBIN 12.7 g/dl (12.0-15.5); MEAN CORPUSCULAR HEMOGLOBIN 30.1 pg (27.0-33.0); MEAN CORPUSCULAR HGB CONC 33.1 g/dl (32.0-36.5); PLATELET COUNT, AUTOMATED 258 10^3/uL (150-450); RED BLOOD COUNT 4.22 10^6/uL (4.00-5.40); WHITE BLOOD COUNT 4.3 10^3/uL (4.0-10.0)
[2018-09-01 07:06] LABS: BLOOD UREA NITROGEN 7 MG/DL (7-18); CALCIUM LEVEL 8.6 MG/DL (8.5-10.1); CARBON DIOXIDE LEVEL 21 MEQ/L (21-32); CHLORIDE LEVEL 108 MEQ/L (98-107); CREATININE FOR GFR 0.93 MG/DL (0.55-1.30); GLOMERULAR FILTRATION RATE > 60.0 (>60); GLUCOSE, FASTING 109 MG/DL (70-100); POTASSIUM SERUM 3.8 MEQ/L (3.5-5.1); SODIUM LEVEL 136 MEQ/L (136-145)
[2018-09-01] MEDS: KETOROLAC 30 MG/ML VIAL (J1885) IV PRN (08:38)
[2018-09-01 08:50] VITALS: BP 116/74
[2018-09-01] MEDS: HEPARIN SOD (PORCINE) 5000 UNITS/ML VIAL SC SCH ×2 (09:18→20:06)
[2018-09-01] MEDS: CIPROFLOXACIN 400 MG in APPROPRIATE DILUENT 1 EA IV SCH (12:01)
[2018-09-01 16:00] VITALS: BP 110/68
--- NOTE | 2018-09-01 16:28 | IPNPDOC ---
Date Seen The patient was seen on 09/01/18. Progress Note SUBJECTIVE: Patient appeared slightly better than yesterday. Reports still having periods of feeling very sick but also has more time where she felt better. Overall minor improvement. Morphine had been d/c yesterday and patient seem to tolerate fine. Tolerated her meal this morning. OBJECTIVE PHYSICAL EXAMINATION: VITAL SIGNS: Please see below. General: mild distress. Eyes: Normal sclera, EOMI, SHELIA HENT: Atraumatic, neck supple, moist mucous membranes Cardiovascular: Normal rate, normal rhythm. Pulmonary: Clear to auscultation b/l, no wheezing GI: Soft, nondistended. Mild generalized tenderness on palpation. Normoactive bowel sounds. Skin: Warm and dry Neuro: CN grossly intact. No focal deficits. Strengths equal b/l. Psych: oriented x 3 LABORATORY DATA, IMAGING STUDIES, MICROBIOLOGY: Please see below. DVT prophylaxis ordered?: Yes ASSESSMENT AND PLAN: 1. Colitis vs Intussusception - CT with evidence of intussusception and colitis. No evidence of obstruction. - Surgery evaluated, no evidence of obstruction seen on upper GI series with SB follow through. - Previous findings likely transient. - Pain management. - c/w empiric Abx cipro and flagyl. - GI + for E. coli (EAEC), likely cause of her colitis and symptoms. - Symptoms had seem to be improving, will d/c Abx as the main treatment is supportive care. A-FIB/CHADSVASC A-FIB History Current/History of A-Fib/PAF?: No VS, I&O, 24H, Fishbone Vital Signs/I&O Vital Signs Date Time Temp Pulse Resp B/P (MAP) Pulse Ox O2 Delivery O2 Flow Rate FiO2 09/01/18 16:00 98.0 93 18 110/68 (82) 98 08/28/18 22:37 Room Air I&O- Last 24 Hours up to 6 AM 09/01/18 06:00 Intake Total 2925 ml Output Total 4750 ml Balance -1825 ml Laboratory Data 24H LABS Laboratory Tests 2 09/01/18 06:26: Nucleated Red Blood Cells % (auto) 0.0, Anion Gap 7L, Glomerular Filtration Rate > 60.0, Blood Urea Nitrogen 7#, Creatinine 0.93, Sodium Level 136, Potassium Level 3.8, Chloride Level 108H, Carbon Dioxide Level 21, Calcium Level 8.6 CBC/BMP Laboratory Tests 09/01/18 06:26 Red Blood Count 4.22, Mean Corpuscular Volume 91.0, Mean Corpuscular Hemoglobin 30.1, Mean Corpuscular Hemoglobin Concent 33.1, Red Cell Distribution Width 13.2, Calcium Level 8.6 Microbiology Microbiology 08/30/18 Gastrointestinal Tract Panel (PCR) - Final, Complete Enteroaggregative E.coli LOKI LYNN MD September 01, 2018 16:28
[2018-09-01 20:00] VITALS: BP 127/71
[2018-09-01] MEDS: SLF 3 ML SYR IV PRN ×3 (20:07→23:52)
[2018-09-01] MEDS: SLF 3 ML SYR IV SCH (22:00)
[2018-09-01] MEDS: CIPROFLOXACIN 200 MG in APPROPRIATE DILUENT 1 EA IV SCH (23:49)
[2018-09-02] VITALS: BP 106/56
[2018-09-02] MEDS: SLF 3 ML SYR IV SCH (06:00)
[2018-09-02] MEDS: PROMETHAZINE INJ 25 MG/ML VIAL (J2550) IV PRN ×2 (06:45→11:18)
[2018-09-02] MEDS: PERCOCET 5MG/325MG TAB PO PRN ×2 (06:46→11:18)
[2018-09-02 07:06] LABS: HEMATOCRIT 39.7 % (36.0-47.0); HEMOGLOBIN 13.4 g/dl (12.0-15.5); MEAN CORPUSCULAR HEMOGLOBIN 29.6 pg (27.0-33.0); MEAN CORPUSCULAR HGB CONC 33.8 g/dl (32.0-36.5); MEAN CORPUSCULAR VOLUME 87.6 fl (80.0-96.0); PLATELET COUNT, AUTOMATED 259 10^3/uL (150-450); RED BLOOD COUNT 4.53 10^6/uL (4.00-5.40); WHITE BLOOD COUNT 6.1 10^3/uL (4.0-10.0)
[2018-09-02 07:28] LABS: BLOOD UREA NITROGEN 12 MG/DL (7-18); CARBON DIOXIDE LEVEL 24 MEQ/L (21-32); CHLORIDE LEVEL 105 MEQ/L (98-107); CREATININE FOR GFR 0.98 MG/DL (0.55-1.30); GLOMERULAR FILTRATION RATE > 60.0 (>60); GLUCOSE, FASTING 140 MG/DL (70-100); POTASSIUM SERUM 3.8 MEQ/L (3.5-5.1); SODIUM LEVEL 137 MEQ/L (136-145)
[2018-09-02 08:00] VITALS: BP 125/69
[2018-09-02] MEDS: HEPARIN SOD (PORCINE) 5000 UNITS/ML VIAL SC SCH (09:04)
[2018-09-02] MEDS: CIPROFLOXACIN 200 MG in APPROPRIATE DILUENT 1 EA IV SCH (11:10)
[2018-09-02] MEDS ORDERED: PERCOCET PO (11:38)
[2018-09-02] MEDS ORDERED: ONDA4TAB6 PO (11:42)
--- NOTE | 2018-09-02 12:27 | DS.PDOC ---
Discharge Summary General Date of Admission August 28, 2018 at 21:13 Date of Discharge 09/02/18 Attending Physician: LOKI LYNN MD Discharge Summary PROCEDURES PERFORMED DURING STAY: [None]. ADMITTING DIAGNOSES: 1. Colitis. DISCHARGE DIAGNOSES: 1. Colitis COMPLICATIONS/CHIEF COMPLAINT: Abdominal pain. Nausea and vomiting. HISTORY OF PRESENT ILLNESS: "Ms. Osorio is a 33 years old woman who came to ER with c/o lower abdominal pain, back pain, nausea and bloody diarrhea that started last night. She denies fever, chills or sick contacts. In the ER, pt was afebrile and hemodynamically stable. CT abd: Colitis and Intussusception. Seen by Dr. Cobos who doesn't think it is an Intussusception, and recommends observation and small bowel follow through in the morning. I spoke with his; he lil follow up tomorrow morning. When I saw the pt in the ER, pain was better after receiving pain med." HOSPITAL COURSE: Patient was initially admitted for colitis with concern for possible intussusception based on CT scan. Patient will follow by surgery with with subsequent upper GI series and small bowel follow-through showing no obstruction. Initial findings and CT likely transient. GI panel was positive for Escherichia coli (Enteroaggregative), likely leading to patient's symptoms. She was started on IV Abx and completed a 5 day course. Abx were initiated prior to known E. coli infection and was continued to complete 5 days given severity of illness and reported bloody diarrhea prior to presentation. Symptoms were slow to improve but appeared to be better today as patient had tolerated her meals with improved abdominal soreness. Bowel sounds normoactive with normal bowel movement through course of admission. To discharge for continued support care and f/u with PCP. DISCHARGE MEDICATIONS: Please see below. ALLERGIES: Please see below. PHYSICAL EXAMINATION ON DISCHARGE: VITAL SIGNS: Please see below. General: mild distress. Eyes: Normal sclera, EOMI, SHELIA HENT: Atraumatic, neck supple, moist mucous membranes Cardiovascular: Normal rate, normal rhythm. Pulmonary: Clear to auscultation b/l, no wheezing GI: Soft, nondistended. Mild generalized tenderness on palpation. Normoactive bowel sounds. Skin: Warm and dry Neuro: CN grossly intact. No focal deficits. Strengths equal b/l. Psych: oriented x 3 LABORATORY DATA: Please see below. IMAGING: Abdomen CT- 1. A target sign is visualized involving a jejunal loop, consistent with intussusception. A second area of intussusception is identified at the gastroduodenal junction. 2. Colonic wall thickening is identified, most significant involving the descending colon with minimal pericolonic stranding. This is consistent with colitis. 3. Within the left ovary, there is a peripheral enhancing probable cyst. This measures 1.6 x 1.3 cm. 4. Additional findings described above. COMMENT: Consistent with the [employer]'s Incidental Findings Committee Report (J Am Marcus [employer]iol 2010): Unless the patient's specific circumstances suggest otherwise, any liver lesion 0.5 cm or less, any cystic kidney lesion less than 1.0 cm, and/or any adrenal lesion 1.0 cm or less not otherwise characterized in this report as possessing suspicious or indeterminate imaging features is/are highly likely to be benign and do not require follow-up imaging or biopsy. Pelvis US- Normal pelvic sonography Abdomen XR- Unremarkable abdominal radiograph. Upper GI and SB XR- Impression; 1. Gastroesophageal reflux to the level of the eri. ACTIVITY: [As tolerated]. DIET: Low residue diet DISCHARGE PLAN: Rest, drink ample fluids. F/u with PCP. DISPOSITION: Home. DISCHARGE INSTRUCTIONS: Rest, drink ample fluids. F/u with PCP. ITEMS TO FOLLOWUP ON ON OUTPATIENT: None DISCHARGE CONDITION: [Stable]. TIME SPENT ON DISCHARGE: 34 minutes. Vital Signs/I&Os Vital Signs Date Time Temp Pulse Resp B/P (MAP) Pulse Ox O2 Delivery O2 Flow Rate FiO2 09/02/18 12:07 18 09/02/18 08:00 97.7 98 125/69 (87) 99 08/28/18 22:37 Room Air I&O- Last 24 Hours up to 6 AM 09/02/18 06:00 Intake Total 1240 ml Output Total 3100 ml Balance -1860 ml Laboratory Data Labs 24H Laboratory Tests 2 09/02/18 06:51: Nucleated Red Blood Cells % (auto) 0.0, Anion Gap 8, Glomerular Filtration Rate > 60.0, Blood Urea Nitrogen 12#, Creatinine 0.98, Sodium Level 137, Potassium Level 3.8, Chloride Level 105, Carbon Dioxide Level 24, Calcium Level 9.0 CBC/BMP Laboratory Tests 09/02/18 06:51 Red Blood Count 4.53, Mean Corpuscular Volume 87.6, Mean Corpuscular Hemoglobin 29.6, Mean Corpuscular Hemoglobin Concent 33.8, Red Cell Distribution Width 13.3, Calcium Level 9.0 Microbiology Microbiology 08/30/18 Gastrointestinal Tract Panel (PCR) - Final, Complete Enteroaggregative E.coli Discharge Medications Scheduled Dextroamphetamine/Amphetamine (Adderall 20 mg Tablet) 20 Mg Tablet, 20 MG PO DAILY, (Reported) Scheduled PRN Hydroxyzine HCl (Hydroxyzine HCl) 25 Mg Tablet, 25 MG PO QID PRN for ANXIETY, (Reported) Ibuprofen (Advil) 100 Mg Tablet, 600 MG PO QID PRN for PAIN, (Reported) Ondansetron (Ondansetron Odt) 4 Mg Tab.rapdis, 4 MG PO Q4-6HP PRN for NAUSEA OR VOMITING Oxycodone/Acetaminophen (Oxycodone-Acetaminophen 5-325) 1 Each Tablet, 1 TAB PO Q6HP PRN for SEVERE PAIN (PS 8-10) Allergies Coded Allergies: metoclopramide (Verified Allergy, Intermediate, itchy, irritable, 08/28/18) LOKI LYNN MD September 02, 2018 12:26
== END 2018-09-02 12:55 | disposition home or self-care (01) | DRG 249 ==
LOC: M ED 14:02 → M ED INP 21:13 → M MS5PR 23:55 → M PED 08-30 15:45
PROVIDERS: ADMIT Internal Medicine; ATTEND Student in an Organized Health Care Education/Training Program
DX: A09 Infectious gastroenteritis and colitis, unspecified (principal); K56.1 Intussusception; Z79.899 Other long term (current) drug therapy; Z87.891 Personal history of nicotine dependence; Z88.8 Allergy status to other drugs, medicaments and biological substances

== ENCOUNTER 2018-10-20 07:08 | Emergency (ER) | payer OTHER, SELFPAY ==
[~2018-10-20] VITALS: Ht 160 cm; Wt 72.5 kg
[~2018-10-20 07:08] MED LIST: ADDE20TA PO; ADVI100T PO; HYDR-3363 PO; ONDA4TAB6 PO; PERCOCET PO
[2018-10-20 07:09] VITALS: BP 129/86
[2018-10-20] MEDS ORDERED: IBUP1TAB7 PO (07:15)
--- NOTE | 2018-10-20 08:11 | REP ---
Clinical: Trauma. Technique: AP, lateral, bilateral oblique views left hand . Findings: The osseous structures and joint spaces are intact and normal. There is no evidence for acute fracture or dislocation. Surrounding soft tissues are unremarkable. No subcutaneous emphysema or radiodense foreign body. Impression: No acute fracture or dislocation. Electronically Signed by Daniel Cramer MD 10/20/2018 08:01 A
== END 2018-10-20 08:05 | disposition home or self-care (01) ==
LOC: M ED 07:08
DX: S63.92XA Sprain of unspecified part of left wrist and hand, initial encounter (principal); S63.502A Unspecified sprain of left wrist, initial encounter; X58.XXXA Exposure to other specified factors, initial encounter; Y92.814 Boat as the place of occurrence of the external cause; Y93.39 Activity, other involving climbing, rappelling and jumping off; Y99.9 Unspecified external cause status; Z87.442 Personal history of urinary calculi; Z87.891 Personal history of nicotine dependence; Z88.8 Allergy status to other drugs, medicaments and biological substances

== ENCOUNTER → 2018-10-25 | Outpatient (REF) | payer OTHER, SELFPAY ==
[~2018-10-25] MED LIST changes: +IBUP1TAB7 PO
[2018-10-25 10:18] LABS: ALBUMIN 4.3 GM/DL (3.2-5.2); ALT/SGPT 29 U/L (12-78); BILIRUBIN,TOTAL 1.3 MG/DL (0.2-1.0); BLOOD UREA NITROGEN 17 MG/DL (7-18); CALCIUM LEVEL 9.6 MG/DL (8.5-10.1); CARBON DIOXIDE LEVEL 23 MEQ/L (21-32); CHLORIDE LEVEL 110 MEQ/L (98-107); CHOLESTEROL LEVEL 188 MG/DL (<200); CHOLESTEROL RISK RATIO 1.757 (<5); CREATININE FOR GFR 0.87 MG/DL (0.55-1.30); GLOMERULAR FILTRATION RATE > 60.0 (>60); GLUCOSE, FASTING 114 MG/DL (70-100); HDL CHOLESTEROL 107 MG/DL (>40); LDL CHOLESTEROL 64 MG/DL (<100); NON-HDL-C 81 MG/DL; POTASSIUM SERUM 3.8 MEQ/L (3.5-5.1); SODIUM LEVEL 131 MEQ/L (136-145); TOTAL PROTEIN 7.9 GM/DL (6.4-8.2); TRIGLYCERIDES LEVEL 86 MG/DL (<150)
== END ==
LOC: M SFHCPLAZ 08:09
PROVIDERS: ATTEND Nurse Practitioner Family
DX: Z00.00 Encounter for general adult medical examination without abnormal findings (principal); Z13.220 Encounter for screening for lipoid disorders

== ENCOUNTER → 2019-06-14 | Outpatient (CLI) | payer OTHER | LOC: M OUTALCOH 09:04 | PROVIDERS: ATTEND Psychiatry & Neurology Addiction Medicine | DX: F10.10 Alcohol abuse, uncomplicated (principal) ==

== ENCOUNTER → 2019-07-03 | Outpatient (REF) | payer OTHER ==
[2019-07-03 18:12] LABS: ALBUMIN 4.4 GM/DL (3.2-5.2); ALT/SGPT 25 U/L (12-78); BILIRUBIN,TOTAL 0.7 MG/DL (0.2-1.0); BLOOD UREA NITROGEN 14 MG/DL (7-18); CALCIUM LEVEL 9.8 MG/DL (8.5-10.1); CARBON DIOXIDE LEVEL 26 MEQ/L (21-32); CHLORIDE LEVEL 104 MEQ/L (98-107); CREATININE FOR GFR 0.97 MG/DL (0.55-1.30); GLOMERULAR FILTRATION RATE > 60.0 (>60); GLUCOSE, FASTING 92 MG/DL (70-100); POTASSIUM SERUM 4.2 MEQ/L (3.5-5.1); SODIUM LEVEL 137 MEQ/L (136-145); TOTAL PROTEIN 8.2 GM/DL (6.4-8.2)
[2019-07-03 18:49] LABS: HEMOGLOBIN A1c 5.6 %
== END ==
LOC: M SFHCPLAZ 13:09
PROVIDERS: ATTEND Family Medicine
DX: E87.1 Hypo-osmolality and hyponatremia (principal); E80.6 Other disorders of bilirubin metabolism; R73.01 Impaired fasting glucose

== ENCOUNTER 2019-07-14 16:00 | Outpatient (RCR) | payer OTHER | END 2019-07-18 | LOC: M OUTALCOH 16:00 | PROVIDERS: ATTEND Psychiatry & Neurology Addiction Medicine | DX: F10.10 Alcohol abuse, uncomplicated (principal) ==

== ENCOUNTER → 2019-08-17 | Outpatient (RCR) | payer OTHER | LOC: M OUTALCOH 07-20 13:26 | PROVIDERS: ATTEND Psychiatry & Neurology Addiction Medicine | DX: F10.10 Alcohol abuse, uncomplicated (principal) ==

== ENCOUNTER 2019-09-05 10:00 | Outpatient (RCR) | payer OTHER | END 2019-09-17 | LOC: M OUTALCOH 10:00 | PROVIDERS: ATTEND Psychiatry & Neurology Addiction Medicine | DX: F10.10 Alcohol abuse, uncomplicated (principal) ==

== ENCOUNTER → 2019-10-04 | Outpatient (REF) | payer OTHER | LOC: M PLALAB 16:49 | PROVIDERS: ATTEND Psychiatry & Neurology Addiction Medicine | DX: F10.99 Alcohol use, unspecified with unspecified alcohol-induced disorder (principal); E74.8 Other specified disorders of carbohydrate metabolism ==

== ENCOUNTER → 2019-10-05 | Outpatient (REF) | payer OTHER ==
[2019-10-05 16:41] LABS: HEMATOCRIT 41.2 % (36.0-47.0); HEMOGLOBIN 13.5 g/dl (12.0-15.5); MEAN CORPUSCULAR HGB CONC 32.8 g/dl (32.0-36.5); MEAN CORPUSCULAR VOLUME 94.5 fl (80.0-96.0); PLATELET COUNT, AUTOMATED 391 10^3/uL (150-450); RED BLOOD COUNT 4.36 10^6/uL (4.00-5.40); WHITE BLOOD COUNT 9.1 10^3/uL (4.0-10.0)
== END ==
LOC: M SFHCPLAZ 12:12
PROVIDERS: ATTEND Family Medicine
DX: N92.0 Excessive and frequent menstruation with regular cycle (principal)

== ENCOUNTER 2019-10-09 13:00 | Outpatient (RCR) | payer OTHER | END 2019-10-17 | LOC: M OUTALCOH 13:00 | PROVIDERS: ATTEND Counselor Addiction (Substance Use Disorder) | DX: F10.10 Alcohol abuse, uncomplicated (principal) ==

== ENCOUNTER 2019-11-09 11:00 | Outpatient (RCR) | payer OTHER | END 2019-11-17 | LOC: M OUTALCOH 11:00 | PROVIDERS: ATTEND Psychiatry & Neurology Addiction Medicine | DX: F10.10 Alcohol abuse, uncomplicated (principal) ==

== ENCOUNTER → 2019-12-18 | Outpatient (RCR) | payer OTHER ==
[~2019-12-18] MED LIST changes: +AMPHET/DEXTR PO; +ONDA8TAB8 PO; +PROM25TA12 PO
== END ==
LOC: M OUTALCOH 12-04 11:00
PROVIDERS: ATTEND Psychiatry & Neurology Addiction Medicine
DX: F10.10 Alcohol abuse, uncomplicated (principal)

== ENCOUNTER 2020-01-15 13:47 | Outpatient (RCR) | payer OTHER ==
[~2020-01-15 13:47] MED LIST changes: -AMPHET/DEXTR PO; -ONDA8TAB8 PO; -PROM25TA12 PO
== END 2020-01-17 ==
LOC: M OUTALCOH 13:47
PROVIDERS: ATTEND Psychiatry & Neurology Addiction Medicine
DX: F10.20 Alcohol dependence, uncomplicated (principal)

== ENCOUNTER 2020-02-05 13:00 | Outpatient (RCR) | payer OTHER ==
[~2020-02-05 13:00] MED LIST changes: -AMPHET/DEXTR PO; -ONDA8TAB8 PO; -PROM25TA12 PO
[2020-02-06] MEDS ORDERED: AMPHET/DEXTR PO (15:10)
[2020-02-06] MEDS ORDERED: ONDA8TAB8 PO (15:10)
[2020-02-06] MEDS ORDERED: PROM25TA12 PO (21:21)
== END 2020-02-17 ==
LOC: M OUTALCOH 13:00
PROVIDERS: ATTEND Psychiatry & Neurology Addiction Medicine
DX: F10.20 Alcohol dependence, uncomplicated (principal)

== ENCOUNTER → 2020-02-05 | Outpatient (REF) | payer OTHER ==
[~2020-02-05] MED LIST changes: +AMPHET/DEXTR PO; +ONDA8TAB8 PO; +PROM25TA12 PO
== END ==
LOC: M SFHCPLAZ 16:55
PROVIDERS: ATTEND Physician Assistant
DX: J02.9 Acute pharyngitis, unspecified (principal); R52 Pain, unspecified; R50.9 Fever, unspecified; Z20.828 Contact with and (suspected) exposure to other viral communicable diseases

== ENCOUNTER 2020-02-06 15:01 | Emergency (ER) | payer OTHER ==
[~2020-02-06] VITALS: Ht 157.5 cm; Wt 67.2 kg
[2020-02-06] MEDS ORDERED: AMPHET/DEXTR PO (15:10)
[2020-02-06] MEDS ORDERED: ONDA8TAB8 PO (15:10)
[2020-02-06] MEDS ORDERED: ACETAMINOPHEN 500 MG TAB PO ONE (17:15)
[2020-02-06] MEDS ORDERED: PROMETHAZINE INJ 25 MG/ML VIAL (J2550) IV ONE ×2 (17:15→21:15)
[2020-02-06] MEDS ORDERED: NS 1,000 ML IV ONE (17:15)
[2020-02-06 17:50] LABS: BASO # 0.1 10^3/uL (0.0-0.2); BASO % 0.5 % (0.0-1.0); EOS # 0.1 10^3/uL (0.0-0.5); EOS % 0.6 % (0.0-3.0); HEMATOCRIT 43.4 % (36.0-47.0); HEMOGLOBIN 14.5 g/dl (12.0-15.5); LYMPH # 1.5 10^3/uL (1.5-5.0); LYMPH % 13.9 % (24.0-44.0); MEAN CORPUSCULAR HGB CONC 33.4 g/dl (32.0-36.5); MEAN CORPUSCULAR VOLUME 92.7 fl (80.0-96.0); MONO # 0.6 10^3/uL (0.0-0.8); MONO % 5.8 % (0.0-5.0); NEUTROPHILS # 8.5 10^3/uL (1.5-8.5); NEUTROPHILS % 78.8 % (36.0-66.0); PLATELET COUNT, AUTOMATED 318 10^3/uL (150-450); RED BLOOD COUNT 4.68 10^6/uL (4.00-5.40); WHITE BLOOD COUNT 10.8 10^3/uL (4.0-10.0)
[2020-02-06 18:11] LABS: HCG, SERUM QUALITATIVE NEGATIVE (NEGATIVE)
[2020-02-06 18:16] LABS: ALBUMIN 4.3 GM/DL (3.2-5.2); ALT/SGPT 36 U/L (12-78); BILIRUBIN,DIRECT 0.2 MG/DL (0.0-0.2); BILIRUBIN,TOTAL 0.5 MG/DL (0.2-1.0); BLOOD UREA NITROGEN 10 MG/DL (7-18); CALCIUM LEVEL 9.7 MG/DL (8.5-10.1); CARBON DIOXIDE LEVEL 27 MEQ/L (21-32); CHLORIDE LEVEL 104 MEQ/L (98-107); CREATININE FOR GFR 0.84 MG/DL (0.55-1.30); GLOMERULAR FILTRATION RATE > 60.0 (>60); GLUCOSE, FASTING 94 MG/DL (70-100); LIPASE 49 U/L (73-393); POTASSIUM SERUM 4.2 MEQ/L (3.5-5.1); SODIUM LEVEL 135 MEQ/L (136-145); TOTAL PROTEIN 8.1 GM/DL (6.4-8.2); TROPONIN I < 0.02 NG/ML (< 0.10)
[2020-02-06] MEDS ORDERED: fentaNYL 100 MCG/2 ML INJECTION (J3010) IV ONE (18:30)
[2020-02-06] MEDS ORDERED: ISOVUE-370 76% 100ML VIAL As Ordered ONE (19:05)
--- NOTE | 2020-02-06 20:02 | REPVR ---
PROCEDURE INFORMATION: Exam: XR Chest, 1 View Exam date and time: 02/06/2020 7:10 PM Age: 34 years old Clinical indication: Cough; Additional info: Pleuritic chest pain TECHNIQUE: Imaging protocol: XR of the chest Views: 1 view. COMPARISON: No relevant prior studies available. FINDINGS: Lungs: Unremarkable. No consolidation. No pulmonary edema. Pleural space: Unremarkable. No pleural effusion or pneumothorax is identified. Heart/Mediastinum: Unremarkable. No cardiomegaly. Bones/joints: Unremarkable. IMPRESSION: No acute findings. Electronically signed by: Robbie Arriaza On 02/06/2020 20:01:59 PM
--- NOTE | 2020-02-06 20:09 | REPVR ---
PROCEDURE INFORMATION: Exam: CT Abdomen And Pelvis With Contrast Exam date and time: 02/06/2020 7:15 PM Age: 34 years old Clinical indication: Generalized abdominal pain TECHNIQUE: Imaging protocol: Computed tomography of the abdomen and pelvis with intravenous contrast. Radiation optimization: All CT scans at this facility use at least one of these dose optimization techniques: automated exposure control; mA and/or kV adjustment per patient size (includes targeted exams where dose is matched to clinical indication); or iterative reconstruction. Contrast material: ISOVUE 370; Contrast volume: 100 ml; Contrast route: INTRAVENOUS (IV) COMPARISON: CT ABD/PEL W/IV ORAL CONTRAS 08/28/2018 4:49 PM FINDINGS: Lungs: The imaged portions of the lung bases are clear. The lungs were not fully imaged. Heart: No cardiomegaly or pericardial effusion. Diaphragm: Intact. Liver: The attenuation of the liver is lower compared to the spleen, which can be seen with fatty liver infiltration. No liver lesion is seen. The contour of the liver is smooth. No hepatomegaly is noted. Incidental note is made of focal fatty infiltration of the liver adjacent to the falciform ligament. Gallbladder and bile ducts: No calcified gallstones are noted. No gallbladder wall thickening, pericholecystic fluid, or pericholecystic inflammatory changes are identified. No dilation of the bile ducts is noted. No calcified stones are seen in the common bile duct. Pancreas: Normal. No dilation of the main pancreatic duct is noted. There is no inflammatory fat stranding around the pancreas to suggest acute pancreatitis. Spleen: Normal. No splenomegaly is noted. Adrenals: Normal. No adrenal mass is noted. Kidneys and ureters: The kidneys are normal in appearance. No renal lesion is noted. No stones are noted in the kidneys or ureters. There is no hydronephrosis or hydroureter. There are no wedge-shaped areas of low attenuation in the kidneys to suggest pyelonephritis. There is no renal abscess or perinephric fluid collection. Stomach and bowel: There is thickening of the wall of the gastric antrum. The small bowel is unremarkable. There is no evidence for a bowel obstruction, diverticulosis, diverticulitis, colitis, perforated viscus, pneumatosis intestinalis, intussusception, or volvulus. There is a mild to moderate amount of formed and liquid stool in the colon. Appendix: Normal. There is no evidence for appendicitis. Intraperitoneal space: No free air. No ascites. No asbcess. Retroperitoneal space: No fluid collection. No mass. Vasculature: The abdominal aorta is patent, normal in caliber, and there is no dissection. The iliac arteries, common femoral arteries, renal arteries, celiac artery, superior mesenteric artery, and inferior mesenteric artery are patent. Lymph nodes: No enlarged lymph nodes. Urinary bladder: The partially distended urinary bladder is unremarkable. No stones or masses are seen in the bladder. Reproductive: The uterus is anterverted and unremarkable. The ovaries are unremarkable. Bones/joints: There is no fracture or dislocation. No suspicious osteolytic or osteoblastic lesion. Soft tissues: Unremarkable. No hernia. No soft tissue fluid collection. IMPRESSION: Thickening of the wall of the gastric antrum, which may indicate gastritis. Electronically signed by: Robbie Arriaza On 02/06/2020 20:08:53 PM
[2020-02-06] MEDS ORDERED: PROM25TA12 PO (21:21)
[2020-02-06 21:38] VITALS: BP 110/69
== END 2020-02-06 22:08 | disposition home or self-care (01) ==
LOC: M ED 15:01
DX: K29.70 Gastritis, unspecified, without bleeding (principal); J02.9 Acute pharyngitis, unspecified; R05 Cough; F90.9 Attention-deficit hyperactivity disorder, unspecified type; F10.10 Alcohol abuse, uncomplicated; Z87.891 Personal history of nicotine dependence; Z88.8 Allergy status to other drugs, medicaments and biological substances
CPT/HCPCS: 71045; 74177; 80048; 80076; 81001; 83605; 83690; 84703; 85025; 85379; 87040; 87486; 87581; 87633; 87798; 93041; 96361; 96374; 96375; 96376; 99284; J3010; Q9967

== ENCOUNTER → 2020-05-02 | Outpatient (CLI) | payer SELFPAY ==
[~2020-05-02] MED LIST changes: +AMPHET/DEXTR PO; +ONDA8TAB8 PO; +PROM25TA12 PO
== END ==
LOC: M LABSMTC 11:04
PROVIDERS: ATTEND Pediatrics
DX: Z20.822 Contact with and (suspected) exposure to COVID-19 (principal)

== ENCOUNTER → 2020-05-14 | Outpatient (REF) | payer OTHER | LOC: M LAB 21:12 | PROVIDERS: ATTEND Physician Assistant Medical | DX: Z11.59 Encounter for screening for other viral diseases (principal) ==

== ENCOUNTER → 2020-07-25 | Outpatient (REF) | payer OTHER | LOC: M SFHCWAGY 13:28 | PROVIDERS: ATTEND Nurse Practitioner Women's Health | DX: Z12.4 Encounter for screening for malignant neoplasm of cervix (principal) ==

== ENCOUNTER → 2020-09-05 | Outpatient (REF) | payer OTHER | LOC: M PLALAB 10:02 | PROVIDERS: ATTEND Nurse Practitioner Women's Health | DX: Z15.09 Genetic susceptibility to other malignant neoplasm (principal) ==

== ENCOUNTER → 2020-10-01 | Outpatient (CLI) | payer OTHER ==
--- NOTE | 2020-10-01 08:48 | REP ---
INDICATION: N92.0 MENORRHAGIA WITH REGULAR CYCLE COMPARISON: None. TECHNIQUE: Transabdominal pelvic ultrasound followed by transvaginal examination for better evaluation of the endometrium and adnexa with color Doppler evaluation of the ovaries. FINDINGS: Bladder is unremarkable and measures 11.4 x 5.6 x 9.5 cm. Normal anteverted uterus measures 8.8 x 4.5 x 4.9 cm. The endometrial complex measures 9.3 mm thickness. No discrete uterine or endometrial abnormalities are appreciated. Bilateral ovaries are normal in appearance and vascularity without evidence for torsion. Right ovary measures 2.7 x 2.0 x 2.7 cm; R I = 0.61. Left ovary measures 2.3 x 1.3 x 2.3 cm; R I = 0.56. No pelvic fluid or adnexal mass lesion IMPRESSION: Normal pelvic ultrasound. <Electronically signed by Daniel Cramer > 10/01/20 0848
--- NOTE | 2020-10-01 09:49 | REPMRS ---
Patient History The patient states she had a clinical breast exam in July 2020. Family history of breast cancer at age 30 in maternal aunt, breast cancer under age 50 in mother. Took hormonal contraceptives for 10 years. Tomosynthesis is performed. Volpara breast density is c. Patient states no breast complaints today. Patient has signed MRS History Sheet. Pt denied . Digital Woman Screen Mammo: October 01, 2020 - Exam #: [id number] Bilateral CC and MLO view(s) were taken. Technologist: Izzy Betts, RT No prior studies available for comparison. FINDINGS: The breast tissue is heterogeneously dense. This may lower the sensitivity of mammography. There is a moderate amount of residual fibroglandular tissue which is fairly symmetric. There is no dominant mass, areas of architectural distortion, or clustered microcalcification typical of malignancy. Assessment: BI-RADS/ACR category 1 mammogram. Negative Mammogram. Recommendation Routine screening mammogram in 1 year (for women over age 40). This mammogram was interpreted with the aid of an FDA-approved computer-aided dectection system. The Lifetime Breast Cancer Risk is estimated at 21.9%. Yearly supplemental screening MRI of the breasts is recommended for patients with an elevated lifetime risk of breast cancer of 20% or greater, in addition to annual screening mammography, staggered every 6 months. Electronically Signed By: Camilo Macario MD 10/01/20 0949
== END ==
LOC: M WHC 07:32
PROVIDERS: ATTEND Nurse Practitioner Women's Health
DX: Z12.31 Encounter for screening mammogram for malignant neoplasm of breast (principal); N92.0 Excessive and frequent menstruation with regular cycle; Z80.3 Family history of malignant neoplasm of breast; Z92.0 Personal history of contraception

== ENCOUNTER 2022-12-21 21:31 | Emergency (ER) | payer BC, OTHER ==
[~2022-12-21] VITALS: Ht 160 cm; Wt 63.3 kg
[2022-12-21 23:07] LABS: HEMATOCRIT 39.7 % (36.0-47.0); HEMOGLOBIN 13.4 g/dl (12.0-15.5); MEAN CORPUSCULAR HGB CONC 33.8 g/dl (32.0-36.5); MEAN CORPUSCULAR VOLUME 91.9 fl (80.0-96.0); PLATELET COUNT, AUTOMATED 288 10^3/uL (150-450); RED BLOOD COUNT 4.32 10^6/uL (4.00-5.40); WHITE BLOOD COUNT 6.3 10^3/uL (4.0-10.0)
[2022-12-21] MEDS ORDERED: ADDE10TA PO (23:16)
[2022-12-21] MEDS ORDERED: ADDE20TA PO (23:16)
[2022-12-21] MEDS ORDERED: ONDA8TAB8 PO (23:16)
[2022-12-21] MEDS ORDERED: HOME MED LIST COMPLETE! XX SCH (23:20)
[2022-12-21 23:29] LABS: ETHYL ALCOHOL (ETHANOL) 0.251 % (0.000-0.010)
[2022-12-21 23:30] LABS: ACETAMINOPHEN LEVEL < 2.0 UG/ML (10.0-20.0); SALICYLATE LEVEL < 3.0 MG/DL (<30)
[2022-12-21 23:31] LABS: ALBUMIN 4.2 G/DL (3.2-5.2); ALKALINE PHOSPHATASE 107 U/L (46-116); ALT/SGPT 40 U/L (7.0-40); AST/SGOT 60 U/L (<34); BILIRUBIN,DIRECT 0.2 MG/DL (<0.4); BILIRUBIN,TOTAL 0.4 MG/DL (0.3-1.2); BLOOD UREA NITROGEN 12 MG/DL (9-23); CALCIUM LEVEL 8.7 MG/DL (8.5-10.1); CARBON DIOXIDE LEVEL 22 MMOL/L (20-31); CHLORIDE LEVEL 107 MMOL/L (98-107); CREATININE FOR GFR 0.71 MG/DL (0.55-1.30); GLOMERULAR FILTRATION RATE > 60.0 (>60); GLUCOSE, FASTING 83 MG/DL (60-100); POTASSIUM SERUM 3.3 MMOL/L (3.5-5.1); SODIUM LEVEL 142 MMOL/L (136-145); TOTAL PROTEIN 7.3 G/DL (5.7-8.2)
[2022-12-21 23:54] LABS: HCG, SERUM QUALITATIVE NEGATIVE (NEGATIVE)
[2022-12-21 23:57] LABS: BARBITURATES URINE NEGATIVE (NEGATIVE); BENZODIAZEPINES URINE NEGATIVE (NEGATIVE); COCAINE METABOLITE URINE NEGATIVE (NEGATIVE); METHADONE URINE NEGATIVE (NEGATIVE); OPIATES URINE NEGATIVE (NEGATIVE); PHENCYCLIDINE URINE NEGATIVE (NEGATIVE)
[2022-12-21 23:58] LABS: AMPHETAMINES LEVEL URINE POSITIVE (NEGATIVE); CANNABINOIDS URINE POSITIVE (NEGATIVE)
[2022-12-22] MEDS ORDERED: POTASSIUM CHLORIDE 10MEQ SR TABLET PO ONE (00:40)
[2022-12-22] MEDS ORDERED: ADDERALL 5 MG TAB PO SCH (08:00)
[2022-12-22 10:36] VITALS: BP 122/66; TEMP 97.6; O2SAT 99
== END 2022-12-22 10:46 | disposition home or self-care (01) ==
LOC: M ED 21:31
DX: F10.129 Alcohol abuse with intoxication, unspecified (principal); R45.851 Suicidal ideations; F90.9 Attention-deficit hyperactivity disorder, unspecified type; Z87.442 Personal history of urinary calculi; Z88.8 Allergy status to other drugs, medicaments and biological substances; Z79.83 Long term (current) use of bisphosphonates; Z79.899 Other long term (current) drug therapy

== ENCOUNTER → 2023-11-16 | Outpatient (CLI) | payer BC ==
[~2023-11-16] MED LIST changes: +ADDE10TA PO; +ONDA-282 PO; +ONDA-284 PO; -ONDA4TAB6 PO; -ONDA8TAB8 PO
== END ==
LOC: M RAD 13:28
PROVIDERS: ATTEND Physician Assistant
DX: R10.31 Right lower quadrant pain (principal); R10.32 Left lower quadrant pain; R68.83 Chills (without fever); N20.0 Calculus of kidney; N83.202 Unspecified ovarian cyst, left side

== ENCOUNTER → 2023-11-16 | Outpatient (CLI) | payer BC ==
[2023-11-16 16:08] LABS: BASO % 0.5 % (0.0-1.0); EOS # 0.2 10^3/uL (0.0-0.5); EOS % 2.5 % (0.0-3.0); HEMATOCRIT 44.3 % (36.0-47.0); HEMOGLOBIN 14.6 g/dl (12.0-15.5); LYMPH # 1.8 10^3/uL (1.5-5.0); LYMPH % 27.6 % (24.0-44.0); MEAN CORPUSCULAR HEMOGLOBIN 31.7 pg (27.0-33.0); MEAN CORPUSCULAR VOLUME 96.1 fl (80.0-96.0); MONO # 0.7 10^3/uL (0.0-0.8); MONO % 11.5 % (2.0-8.0); NEUTROPHILS # 3.7 10^3/uL (1.5-8.5); NEUTROPHILS % 57.4 % (36.0-66.0); PLATELET COUNT, AUTOMATED 287 10^3/uL (150-450); RED BLOOD COUNT 4.61 10^6/uL (4.00-5.40); WHITE BLOOD COUNT 6.4 10^3/uL (4.0-10.0)
[2023-11-16 16:26] LABS: C REACTIVE PROTEIN QUANTITATIV < 0.40 MG/DL (<1.0)
[2023-11-16 16:28] LABS: ALBUMIN 3.9 G/DL (3.2-5.2); ALKALINE PHOSPHATASE 79 U/L (46-116); ALT/SGPT 27 U/L (7.0-40); AST/SGOT 29 U/L (<34); BILIRUBIN,TOTAL 0.9 MG/DL (0.3-1.2); BLOOD UREA NITROGEN 10 MG/DL (9-23); CALCIUM LEVEL 9.2 MG/DL (8.5-10.1); CARBON DIOXIDE LEVEL 26 MMOL/L (20-31); CHLORIDE LEVEL 104 MMOL/L (98-107); CREATININE FOR GFR 0.72 MG/DL (0.55-1.30); GLOMERULAR FILTRATION RATE > 60.0 (>60); GLUCOSE, FASTING 86 MG/DL (60-100); POTASSIUM SERUM 4.8 MMOL/L (3.5-5.1); SODIUM LEVEL 138 MMOL/L (136-145); TOTAL PROTEIN 6.8 G/DL (5.7-8.2)
== END ==
LOC: M PLALAB 11:52
PROVIDERS: ATTEND Physician Assistant
DX: R10.31 Right lower quadrant pain (principal); R10.32 Left lower quadrant pain; R68.83 Chills (without fever); E87.6 Hypokalemia

== ENCOUNTER → 2023-12-03 | Outpatient (CLI) | payer BC ==
[2023-12-03 15:14] LABS: CHOLESTEROL RISK RATIO 2.41 (<5); HDL CHOLESTEROL 79.5 MG/DL (>40); LDL CHOLESTEROL 57.9 MG/DL (<100); NON-HDL-C 112.5 MG/DL
[2023-12-03 15:15] LABS: FREE T4 1.14 NG/DL (0.89-1.76); PERCENT SATURATION 8.6 % (13.2-45.0)
[2023-12-03 15:16] LABS: FERRITIN 17.1 NG/ML (7.3-270.7); THYROID STIMULATING HORMONE 3.731 uIU/ML (0.55-4.78)
[2023-12-03 15:17] LABS: TOTAL 25(OH) VITAMIN D 26.7 NG/ML (20.0-100.0)
== END ==
LOC: M PLALAB 10:45
PROVIDERS: ATTEND Physician Assistant
DX: N92.0 Excessive and frequent menstruation with regular cycle (principal); F90.9 Attention-deficit hyperactivity disorder, unspecified type; Z13.29 Encounter for screening for other suspected endocrine disorder; Z01.89 Encounter for other specified special examinations; Z13.220 Encounter for screening for lipoid disorders

== ENCOUNTER 2023-12-31 11:46 | Outpatient (CLI) | payer BC ==
[~2023-12-31] VITALS: Ht 160 cm; Wt 67.2 kg
[~2023-12-31 11:46] MED LIST changes: +ALBUTEROL SULFATE 2.5MG/0.5ML INH NEB SOLN INH PRN; +EPINEPHrine INJ 1 MG/ML 1ML AMP IM PRN; +diphenhydrAMINE 50MG/ML VIAL IV PRN; +methylPREDNISolone 125MG 2ML VIAL IV PRN
[2023-12-31 12:00] VITALS: BP 116/72; O2SAT 98
[2023-12-31] MEDS ORDERED: NS 1,000 ML IV SCH (12:00)
[2023-12-31] MEDS: FERRIC CARBOXYMALTOSE INJ 750 MG in NS 250 ML (>50kg) IV ONE (12:13)
[2023-12-31 13:35] VITALS: BP 126/77; O2SAT 100
== END 2023-12-31 13:35 ==
LOC: M INFU 11:46
PROVIDERS: ATTEND Physician Assistant
DX: D50.9 Iron deficiency anemia, unspecified (principal); Z88.8 Allergy status to other drugs, medicaments and biological substances
CPT/HCPCS: 96365; J1439

== ENCOUNTER 2024-01-24 14:50 | Outpatient (CLI) | payer BC ==
[~2024-01-24] VITALS: Ht 160 cm; Wt 68.1 kg
[2024-01-24 15:00] VITALS: BP 121/73; O2SAT 100
[2024-01-24] MEDS: FERRIC CARBOXYMALTOSE INJ 750 MG, VIAL MATE ADAPTER 1 EACH in NS 100 ML IV ONE (15:07)
[2024-01-24 15:46] VITALS: BP 112/65; O2SAT 98
== END 2024-01-24 15:45 ==
LOC: M INFU 14:50
PROVIDERS: ATTEND Physician Assistant
DX: D50.9 Iron deficiency anemia, unspecified (principal); Z88.8 Allergy status to other drugs, medicaments and biological substances
CPT/HCPCS: 96365; J1439

== ENCOUNTER 2024-06-30 19:02 | Emergency (ER) | payer BC ==
[~2024-06-30] VITALS: Ht 160 cm; Wt 74.6 kg
[~2024-06-30 19:02] MED LIST changes: -ALBUTEROL SULFATE 2.5MG/0.5ML INH NEB SOLN INH PRN; -EPINEPHrine INJ 1 MG/ML 1ML AMP IM PRN; -diphenhydrAMINE 50MG/ML VIAL IV PRN; -methylPREDNISolone 125MG 2ML VIAL IV PRN
[2024-06-30 19:06] VITALS: TEMP 97.2
[2024-06-30 19:44] LABS: KETONE, URINE AUTO RFX NEGATIVE (NEGATIVE); LEUKOCYTE ESTERASE UR AUTO RFX NEGATIVE (NEGATIVE); NITRITE, URINE AUTO RFX NEGATIVE (NEGATIVE); RBC, URINE AUTO RFX 0 /HPF (0-3); SQUAM EPITHELIAL CELL UR AURFX 0 /HPF (0-6); WBC, URINE AUTO RFX 0 /HPF (0-3)
[2024-06-30 19:45] LABS: BASO # 0.1 10^3/uL (0.0-0.2); BASO % 0.7 % (0.0-1.0); EOS # 0.1 10^3/uL (0.0-0.5); EOS % 1.7 % (0.0-3.0); HEMATOCRIT 40.9 % (36.0-47.0); HEMOGLOBIN 14.1 g/dl (12.0-15.5); LYMPH # 3.1 10^3/uL (1.5-5.0); LYMPH % 36.2 % (24.0-44.0); MEAN CORPUSCULAR HEMOGLOBIN 30.5 pg (27.0-33.0); MEAN CORPUSCULAR HGB CONC 34.5 g/dl (32.0-36.5); MEAN CORPUSCULAR VOLUME 88.3 fl (80.0-96.0); MONO # 0.8 10^3/uL (0.0-0.8); NEUTROPHILS # 4.4 10^3/uL (1.5-8.5); NEUTROPHILS % 52.3 % (36.0-66.0); PLATELET COUNT, AUTOMATED 350 10^3/uL (150-450); RED BLOOD COUNT 4.63 10^6/uL (4.00-5.40); WHITE BLOOD COUNT 8.5 10^3/uL (4.0-10.0)
[2024-06-30 20:17] LABS: BLOOD UREA NITROGEN 11 MG/DL (9-23); CALCIUM LEVEL 9.3 MG/DL (8.5-10.1); CARBON DIOXIDE LEVEL 26 MMOL/L (20-31); CHLORIDE LEVEL 105 MMOL/L (98-107); CREATININE FOR GFR 0.75 MG/DL (0.55-1.30); GLOMERULAR FILTRATION RATE > 60.0 (>60); GLUCOSE, FASTING 91 MG/DL (60-100); HCG, SERUM QUANTITATIVE < 2.6 MIU/ML (<4.2); POTASSIUM SERUM 3.9 MMOL/L (3.5-5.1); SODIUM LEVEL 139 MMOL/L (136-145)
[2024-06-30] MEDS: KETOROLAC 30 MG/ML 1ML VIAL IV ONE (20:25)
[2024-06-30 20:26] VITALS: BP 135/95; O2SAT 100
== END 2024-06-30 21:24 | disposition home or self-care (01) ==
LOC: M ED 19:02
DX: R10.32 Left lower quadrant pain (principal); F90.9 Attention-deficit hyperactivity disorder, unspecified type; Z88.8 Allergy status to other drugs, medicaments and biological substances; Z79.83 Long term (current) use of bisphosphonates; Z79.899 Other long term (current) drug therapy; Z79.1 Long term (current) use of non-steroidal anti-inflammatories (NSAID)
CPT/HCPCS: 36415; 76856; 80048; 81001; 84702; 85025; 86850; 86900; 86901; 93976; 96374; 99284; J1885

== ENCOUNTER → 2024-07-06 | Outpatient (CLI) | payer BC ==
[2024-07-06 12:01] LABS: BASO # 0.1 10^3/uL (0.0-0.2); BASO % 0.8 % (0.0-1.0); EOS # 0.2 10^3/uL (0.0-0.5); EOS % 2.6 % (0.0-3.0); HEMATOCRIT 43.6 % (36.0-47.0); HEMOGLOBIN 14.9 g/dl (12.0-15.5); LYMPH # 2.6 10^3/uL (1.5-5.0); LYMPH % 28.4 % (24.0-44.0); MEAN CORPUSCULAR HEMOGLOBIN 30.7 pg (27.0-33.0); MEAN CORPUSCULAR HGB CONC 34.2 g/dl (32.0-36.5); MEAN CORPUSCULAR VOLUME 89.7 fl (80.0-96.0); MONO # 0.8 10^3/uL (0.0-0.8); NEUTROPHILS # 5.4 10^3/uL (1.5-8.5); NEUTROPHILS % 58.9 % (36.0-66.0); PLATELET COUNT, AUTOMATED 385 10^3/uL (150-450); RED BLOOD COUNT 4.86 10^6/uL (4.00-5.40); WHITE BLOOD COUNT 9.1 10^3/uL (4.0-10.0)
[2024-07-06 12:05] LABS: ERYTHROCYTE SEDIMENTATION RATE 12 mm/hr (0-20)
[2024-07-06 12:20] LABS: IRON (FE) 90 UG/DL (50-170)
[2024-07-06 12:21] LABS: ALBUMIN 4.2 G/DL (3.2-5.2); ALKALINE PHOSPHATASE 82 U/L (35-104); ALT/SGPT 16 U/L (7.0-40); AST/SGOT 12 U/L (<34); BILIRUBIN,TOTAL 0.4 MG/DL (0.3-1.2); BLOOD UREA NITROGEN 11 MG/DL (9-23); CALCIUM LEVEL 9.6 MG/DL (8.5-10.1); CARBON DIOXIDE LEVEL 23 MMOL/L (20-31); CHLORIDE LEVEL 107 MMOL/L (98-107); GLOMERULAR FILTRATION RATE > 60.0 (>60); GLUCOSE, FASTING 110 MG/DL (60-100); HCG, SERUM QUANTITATIVE < 2.6 MIU/ML (<4.2); PERCENT SATURATION 27.1 % (13.2-45.0); POTASSIUM SERUM 4.2 MMOL/L (3.5-5.1); SODIUM LEVEL 137 MMOL/L (136-145); TOTAL IRON BINDING CAPACITY 332 UG/DL (250-425); TOTAL PROTEIN 7.3 G/DL (5.7-8.2)
[2024-07-06 12:24] LABS: FREE T4 1.02 NG/DL (0.89-1.76); THYROID STIMULATING HORMONE 3.403 uIU/ML (0.55-4.78)
[2024-07-06 12:25] LABS: FERRITIN 116.1 NG/ML (7.3-270.7)
[2024-07-06 12:52] LABS: HCG, SERUM QUALITATIVE NEGATIVE (NEGATIVE)
== END ==
LOC: M PLALAB 07:52
PROVIDERS: ATTEND Nurse Practitioner Family
DX: D50.9 Iron deficiency anemia, unspecified (principal); R53.83 Other fatigue; R19.7 Diarrhea, unspecified

== ENCOUNTER 2024-07-23 20:16 | Emergency (ER) | payer BC ==
[~2024-07-23] VITALS: Ht 160 cm; Wt 76.1 kg
[2024-07-23] MEDS: NS (Normal Saline) 0.9% 1,000 ML IV ONE (21:35)
[2024-07-23] MEDS: KETOROLAC 30 MG/ML 1ML VIAL IV ONE (22:06)
[2024-07-23] MEDS: ONDANSETRON 4MG 2ML VIAL IV ONE (22:07)
[2024-07-23 22:16] LABS: BASO # 0.1 10^3/uL (0.0-0.2); BASO % 0.5 % (0.0-1.0); EOS # 0.1 10^3/uL (0.0-0.5); EOS % 1.2 % (0.0-3.0); HEMATOCRIT 38.7 % (36.0-47.0); HEMOGLOBIN 13.3 g/dl (12.0-15.5); LYMPH # 3.2 10^3/uL (1.5-5.0); MEAN CORPUSCULAR HEMOGLOBIN 30.6 pg (27.0-33.0); MEAN CORPUSCULAR HGB CONC 34.4 g/dl (32.0-36.5); MONO # 0.9 10^3/uL (0.0-0.8); MONO % 7.5 % (2.0-8.0); NEUTROPHILS # 7.6 10^3/uL (1.5-8.5); NEUTROPHILS % 63.5 % (36.0-66.0); PLATELET COUNT, AUTOMATED 340 10^3/uL (150-450); RED BLOOD COUNT 4.35 10^6/uL (4.00-5.40); WHITE BLOOD COUNT 11.9 10^3/uL (4.0-10.0)
[2024-07-23 22:22] LABS: KETONE, URINE AUTO RFX NEGATIVE (NEGATIVE); LEUKOCYTE ESTERASE UR AUTO RFX NEGATIVE (NEGATIVE); NITRITE, URINE AUTO RFX NEGATIVE (NEGATIVE); RBC, URINE AUTO RFX 0 /HPF (0-3); SQUAM EPITHELIAL CELL UR AURFX 0 /HPF (0-6); WBC, URINE AUTO RFX 0 /HPF (0-3)
[2024-07-23 22:35] LABS: BLOOD UREA NITROGEN 11 MG/DL (9-23); CALCIUM LEVEL 9.2 MG/DL (8.5-10.1); CARBON DIOXIDE LEVEL 29 MMOL/L (20-31); CHLORIDE LEVEL 105 MMOL/L (98-107); CREATININE FOR GFR 0.75 MG/DL (0.55-1.30); GLOMERULAR FILTRATION RATE > 60.0 (>60); GLUCOSE, FASTING 98 MG/DL (60-100); SODIUM LEVEL 139 MMOL/L (136-145)
[2024-07-23] MEDS ORDERED: ISOVUE-370 76% 100ML VIAL As Ordered ONE (22:38)
[2024-07-23 22:44] LABS: PROCALCITONIN <0.04 ng/ml
[2024-07-23 22:54] LABS: LIPASE 43 U/L (12-53)
[2024-07-23 22:56] LABS: ALKALINE PHOSPHATASE 82 U/L (35-104); ALT/SGPT 18 U/L (7.0-40); AST/SGOT 24 U/L (<34); BILIRUBIN,DIRECT < 0.1 MG/DL (<0.4); BILIRUBIN,TOTAL 0.3 MG/DL (0.3-1.2); TOTAL PROTEIN 7.1 G/DL (5.7-8.2)
[2024-07-24] MEDS: MORPHINE 4 MG/ML 1ML VIAL IV PRN (00:16)
[2024-07-24] MEDS: METHOCARBAMOL 1,000 MG/10 ML VIAL IV ONE (00:19)
[2024-07-24] MEDS: PROMETHAZINE 25MG/ML 1ML VIAL IV ONE (00:20)
[2024-07-24] MEDS ORDERED: METH-1165 PO (00:54)
[2024-07-24] MEDS ORDERED: ONDA-282 PO (00:54)
[2024-07-24] MEDS ORDERED: KETO10TAB PO (00:54)
[2024-07-24] MEDS: OXYCODONE/APAP 5MG/325MG(HOME DOSE PACK) PO ONE (00:55)
[2024-07-24 01:09] VITALS: BP 109/65; TEMP 97.9; O2SAT 99
== END 2024-07-24 01:23 | disposition home or self-care (01) ==
LOC: M ED 20:16
DX: R10.9 Unspecified abdominal pain (principal); F17.200 Nicotine dependence, unspecified, uncomplicated; F12.10 Cannabis abuse, uncomplicated; Z87.442 Personal history of urinary calculi; Z88.8 Allergy status to other drugs, medicaments and biological substances; Z79.899 Other long term (current) drug therapy; Z79.83 Long term (current) use of bisphosphonates
CPT/HCPCS: 74177; 80048; 80076; 81001; 83690; 84145; 85025; 96374; 96375; 99284; J1885; J2405; J2550; J2800; Q9967

== ENCOUNTER → 2024-07-28 | Outpatient (CLI) | payer BC ==
[~2024-07-28] MED LIST changes: +KETO10TAB PO; +METH-1165 PO
== END ==
LOC: M RAD 15:51
PROVIDERS: ATTEND Nurse Practitioner Family
DX: R10.2 Pelvic and perineal pain (principal)

== ENCOUNTER → 2024-10-18 | Outpatient (CLI) | payer BC | LOC: M WHC 11:36 | PROVIDERS: ATTEND Nurse Practitioner Family | DX: N80.03 Adenomyosis of the uterus (principal); N83.291 Other ovarian cyst, right side ==

== ENCOUNTER 2024-12-28 13:18 | Emergency (ER) | payer BC ==
[~2024-12-28] VITALS: Ht 160 cm; Wt 72.7 kg
[2024-12-28] MEDS ORDERED: HOME MED LIST COMPLETE! XX SCH (14:15)
[2024-12-28 15:08] VITALS: BP 146/82; TEMP 97.3; O2SAT 99
[2024-12-28 15:08] LABS: BARBITURATES URINE NEGATIVE (NEGATIVE); BENZODIAZEPINES URINE NEGATIVE (NEGATIVE); COCAINE METABOLITE URINE NEGATIVE (NEGATIVE); METHADONE URINE NEGATIVE (NEGATIVE); OPIATES URINE NEGATIVE (NEGATIVE); PHENCYCLIDINE URINE NEGATIVE (NEGATIVE)
[2024-12-28 15:10] LABS: ETHYL ALCOHOL (ETHANOL) < 0.003 % (0.000-0.010); SALICYLATE LEVEL < 3.0 MG/DL (<30)
[2024-12-28 15:11] LABS: AMPHETAMINES LEVEL URINE POSITIVE (NEGATIVE); CANNABINOIDS URINE POSITIVE (NEGATIVE); PLATELET COUNT, AUTOMATED 335 10^3/uL (150-450)
[2024-12-28 15:12] LABS: ALT/SGPT 20 U/L (7.0-40); AST/SGOT 21 U/L (<34); CALCIUM LEVEL 10.0 MG/DL (8.5-10.1); CARBON DIOXIDE LEVEL 24 MMOL/L (20-31); CHLORIDE LEVEL 104 MMOL/L (98-107); CREATININE FOR GFR 0.72 MG/DL (0.55-1.30); GLOMERULAR FILTRATION RATE > 90.0 (>60); POTASSIUM SERUM 3.8 MMOL/L (3.5-5.1); SODIUM LEVEL 140 MMOL/L (136-145)
[2024-12-28 15:19] LABS: HCG, SERUM QUALITATIVE NEGATIVE (NEGATIVE)
== END 2024-12-28 16:27 | disposition home or self-care (01) ==
LOC: EDBD 13:18 → M ED 13:18
DX: F22 Delusional disorders (principal); Z87.891 Personal history of nicotine dependence; Z88.8 Allergy status to other drugs, medicaments and biological substances; Z79.1 Long term (current) use of non-steroidal anti-inflammatories (NSAID); Z79.899 Other long term (current) drug therapy